=== PATIENT | male | born 2000 | race Caucasian/White ===

== ENCOUNTER 2025-04-27 12:38 | Emergency (ER) | payer OTHER, SELFPAY ==
--- NOTE | ~2025-04-27 | CT_ITS ---
EXAMINATION: CT abdomen pelvis wo con DATE: 04/27/2025 14:39 INDICATION: Abdominal pain. Tachycardia. Nausea, vomiting and diarrhea. TECHNIQUE: Computed tomography (CT) of the abdomen and pelvis was performed without intravenous contrast. Automated exposure control and iterative reconstruction technique were employed. The dose-length product was 1593.72 mGy-cm. COMPARISON: None FINDINGS: Lung bases are clear. Heart size is normal. No pericardial or pleural effusion. Liver, gallbladder, spleen, pancreas, bilateral adrenal glands and kidneys are normal. No urolithiasis. Bowels including appendix are normal. Bladder and prostate are normal. Moderate-sized fat-containing bilateral inguinal hernias. There is mild haziness to the small bowel mesentery in the left central abdomen along with a few mildly prominent but still normal-sized mesenteric lymph nodes the largest measuring up to 9 mm in maximal short axis diameter. No free intraperitoneal gas or fluid. No pathologically enlarged abdominal or pelvic lymphadenopathy. Mild thoracic and upper lumbar spondylosis. IMPRESSION: 1. Nonspecific mild haziness to the small bowel mesentery consistent with nonspecific inflammation or edema with a few associated mildly prominent but not frankly enlarged likely reactive mesenteric lymph nodes. No other acute intra- abdominal/pelvic process. 2. Moderate-sized bilateral fat-containing inguinal hernias. Reviewed, dictated and finalized at location A. IMPRESSION: 1. Nonspecific mild haziness to the small bowel mesentery consistent with nonsp ecific inflammation or edema with a few associated mildly prominent but not fra nkly enlarged likely reactive mesenteric lymph nodes. No other acute intra-abdo meliza/pelvic process. 2. Moderate-sized bilateral fat-containing inguinal hernias.
[2025-04-27 12:43] VITALS: BP 142/94; PULSE 125; RESP 16; TEMP 36.5; O2SAT 96
[2025-04-27 14:13] LABS: Add Urine Microscopic? YES; Appearance Urine Clear (Clear); Glucose Urine UA Negative (Negative); Leukocyte Esterase Ur Negative LEU/UL (Negative); Nitrate Urine Negative (Negative); Non Pathogenic Casts 0-2; Specific Grav Ur 1.033 (1.001-1.035)
[2025-04-27 14:20] LABS: Hematocrit 51.4 % (42.0-52.0); Hemoglobin 16.6 g/dL (14.0-18.0); Immature Granulocyte Percent A 0.3 % (0-0.5); Lymphocytes Absolute Auto 0.62 K/mm3 (0.9-3.2); Mean Corpuscular HGB Conc 32.3 g/dl (32-36); Mean Corpuscular Hemoglobin 29.2 pg (26-34); Mean Corpuscular Volume 90.3 fl (80-100); Nucleated Red Blood Cells Absolute Auto 0.000 K/mm3 (0.0-0.012); Nucleated Red Blood Cells Perc 0.0 % (0.0-0.2); Platelet Count Result 329 k/mm3 (150-375); Red Blood Count 5.69 M/mm3 (4.6-6.20); White Blood Count 6.2 K/mm3 (4.5-10.0)
[2025-04-27 14:23] LABS: Alanine Aminotransferase 44 U/L (6-50); Albumin Level 4.2 g/dL (3.5-5.1); Alkaline Phosphatase 64 U/L (38-126); Anion Gap 8 mmol/L (4-12); Aspartate Amino Transferase 46 U/L (17-59); Bilirubin,Total 0.3 mg/dL (0.2-1.3); Blood Urea Nitrogen 11 mg/dL (9-20); Calcium 9.0 mg/dL (8.4-10.2); Carbon Dioxide 25 mmol/L (22-30); Chloride 108 mmol/L (98-107); Estimated CRCL calculation 118 ml/min; Estimated Glomerular Filt Rate > 60; Glucose 95 mg/dL (65-110); Lipase 65 U/L (23-300); Potassium 4.3 mmol/L (3.4-5.0); Sodium 141 mmol/L (137-145); Total Protein 7.9 g/dL (6.3-8.2)
[2025-04-27] MEDS: BISMUTH SUBSALICYLATE 262 MG CHEWABLE TABLET 524 MG PO (14:56)
[2025-04-27] MEDS: ONDANSETRON INJ 4 MG/2 ML VIAL IV PUSH (14:56)
[2025-04-27] MEDS: LACTATED RINGERS 1,000 ML 999 ML IV CONT ×3 (14:57→16:30)
[2025-04-27 15:02] VITALS: BP 133/73; PULSE 110; RESP 18; O2SAT 96
[2025-04-27] MEDS: MAG HYDROX/AL HYDROX/SIMETH 30 ML UDC PO (16:29)
[2025-04-27 16:30] VITALS: BP 107/72; PULSE 99; RESP 18; O2SAT 97
--- NOTE | 2025-04-27 19:11 | ED_ITS ---
HPI - Abdominal Pain General Chief Complaint: Abdominal Pain Stated Complaint: diarrhea x 3 days Time Seen by Provider: 04/27/25 13:44 History of Present Illness HPI narrative: Patient with history of tachycardia presents here with nausea diarrhea, his had similar symptoms. Ongoing for last few days and has been having trouble keeping up. Some upper abdominal discomfort Related Data Home Medications ?Medication ?Instructions ?Recorded ?Confirmed ?Last Taken ?Type fluticasone propionate 50 1 spray intranasal DAILY 11/2906/11/23 Unknown History mcg/actuation nasal spray,suspension Allergies Allergy/AdvReac Type Severity Reaction Status Date / Time nitrofurantoin Allergy Unknown Hives Verified 04/27/25 12:46 gentamicin AdvReac Anaphylaxis Verified 04/27/25 12:46 mupirocin (From Bactroban) AdvReac Anaphylaxis Verified 04/27/25 12:46 Review of Systems 2 Review of Systems: All systems reviewed & are unremarkable except as noted in HPI and below PMFSH Past Medical History Medical History BMI 38.0-38.9,adult BMI 40.0-44.9, adult Morbid (severe) obesity due to excess calories Family History Family History Father Diabetes mellitus COPD (chronic obstructive pulmonary disease) CHF (congestive heart failure) Mother Rheumatoid arthritis Sibling No problems noted. 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 EYES: EOMI, conjunctiva normal ENT: Hearing grossly intact LUNGS: Nonlabored breathing. HEART: Tachycardic ABD: [Soft], [nontender to palpation] EXT: Normal range of motion SKIN: [No rashes or lesions.] NEURO: [Alert and oriented x 3. No gross focal sensory or strength deficits.] PSYCH: Normal affect Course Vital Signs Vital signs: Vital Signs Temperature 97.7 F 04/27/25 12:43 Pulse Rate 125 H 04/27/25 12:43 Respiratory Rate 16 04/27/25 12:43 Blood Pressure 142/94 H 04/27/25 12:43 Pulse Oximetry 96 04/27/25 12:43 Oxygen Delivery Room Air 04/27/25 12:43 Temperature 97.7 F 04/27/25 12:43 Pulse Rate 99 04/27/25 16:30 Respiratory Rate 18 04/27/25 16:30 Blood Pressure 107/72 04/27/25 16:30 Pulse Oximetry 97 04/27/25 16:30 Oxygen Delivery Room Air 04/27/25 16:30 MDM - Abdominal Pain MDM Narrative Medical decision making narrative: Electronic medical record was reviewed. Patient presented to the ED with complaint of abdominal cramping, nausea and diarrhea. Vitals tachycardia. Physical exam revealed tachycardic patient who is abdomen soft with only minimal tenderness to the upper abdomen. Based on the patient's history and physical exam, my differential includes but is not limited to [gastritis, gastroenteritis, cholecystitis, pancreatitis, appendicitis]. [IV access was established by nursing staff. Patient was given zofran, Pepto- Bismol, fluids]. CBC, BMP, lipase, LFTs, bilirubin and alk phos were obtained. Labs were pertinent for essentially normal labs. [Decision was made to obtain a CT-abdomen to evaluate for acute abdominal process. CT-abdomen per radiology interpretation is unremarkable for acute intra-abdominal surgical process, no signs of hydronephrosis, cholecystitis, appendicitis.] On reevaluation, the patient states that they are feeling much better. There were no witnessed episodes of vomiting in the emergency department. They are not complaining of any new abdominal pain. Repeat examination did not show any significant guarding or rebound. No new tenderness. At this time I do not feel there is any further emergent treatment to be provided. The patient was given strict return precautions, if they are to develop any worsening abdominal pain, vomiting, or blood in the vomit they are to return to the emergency department immediately. Patient verbally acknowledges understanding these directions. [The patient was informed of the above diagnostic test findings.] No further workup is necessary at this time. They will be discharged home [with prescriptions]. They were advised to follow-up with [their PCP] in 2 days. The patient feels that this is appropriate medical decision making and verbalizes an understanding of the discharge instructions. Lab Data 04/27/25 13:51 04/27/25 13:51 Labs: Lab Results 04/27/25 04/27/25 Range/Units 13:51 13:53 WBC 6.2 (4.5-10.0) K/mm3 RBC 5.69 (4.6-6.20) M/mm3 Hgb 16.6 (14.0-18.0) g/dL Hct 51.4 (42.0-52.0) % MCV 90.3 (80-100) fl MCH 29.2 (26-34) pg MCHC 32.3 (32-36) g/dl RDW 13.6 (11.5-14.5) % Plt Count 329 (150-375) k/mm3 MPV 10.6 H (7.4-10.4) fl Immature Gran % (Auto) 0.3 (0-0.5) % Neut % (Auto) 78.0 H (45.5-73.1) % Lymph % (Auto) 10.0 L (18.3-44.2) % [place] % (Auto) 7.7 (2.6-8.5) % Eos % (Auto) 3.5 (0-4.4) % Baso % (Auto) 0.5 (0.2-1.2) % Lymph # (Auto) 0.62 L (0.9-3.2) K/mm3 [place] # (Auto) 0.5 (0.1-0.6) K/mm3 Eos # (Auto) 0.2 (0-0.3) K/mm3 Baso # (Auto) 0.0 (0.0-0.1) K/mm3 Abs Immat Gran (auto) 0.02 (0.00-0.031) K/mm3 Absolute Neuts (auto) 4.9 (1.3-6.7) K/mm3 Absolute Nucleated RBC 0.000 (0.0-0.012) K/mm3 Nucleated RBC % 0.0 (0.0-0.2) % Sodium 141 (137-145) mmol/L Potassium 4.3 (3.4-5.0) mmol/L Chloride 108 H (98-107) mmol/L Carbon Dioxide 25 (22-30) mmol/L Anion Gap 8 (4-12) mmol/L BUN 11 (9-20) mg/dL Creatinine 1.11 (0.7-1.3) mg/dL Estim Creat Clear Calc 118 ml/min Estimated GFR > 60 (59 - ) Glucose 95 (65-110) mg/dL Calcium 9.0 (8.4-10.2) mg/dL Total Bilirubin 0.3 (0.2-1.3) mg/dL AST 46 (17-59) U/L ALT 44 (6-50) U/L Alkaline Phosphatase 64 (38-126) U/L Total Protein 7.9 (6.3-8.2) g/dL Albumin 4.2 (3.5-5.1) g/dL Lipase 65 (23-300) U/L Urine Color Dark yellow (Yellow) Urine Appearance Clear (Clear) Urine pH 5.0 (5.0-9.0) Ur Specific [place] 1.033 (1.001-1.035) Urine Protein Trace (Negative) mg/dL Urine Glucose (UA) Negative (Negative) mg/dL Urine Ketones Trace H (Negative) mg/dL Ur Blood (Man) Negative (Negative) Urine Nitrate Negative (Negative) Urine Bilirubin 1+ H (Negative) Urine Urobilinogen 1.0 (<2.0) mg/dL Leukocyte Esterase Rfl Negative (Negative) CHRISTAL/UL Urine RBC 0-2 (0-2) /hpf Urine WBC 0-5 (0-3) /hpf Ur Squamous Epith Cells None seen (Few) /hpf Urine Bacteria None seen /hpf Urine Casts 0-2 Imaging Data Radiologist's impression: ITS Impressions Abdomen/Pelvis CT 04/27/25 14:42 IMPRESSION: 1. Nonspecific mild haziness to the small bowel mesentery consistent with nonspecific inflammation or edema with a few associated mildly prominent but not frankly enlarged likely reactive mesenteric lymph nodes. No other acute intra- abdominal/pelvic process. 2. Moderate-sized bilateral fat-containing inguinal hernias. Discharge Plan Discharge Clinical Impression: Nausea, vomiting, and diarrhea Patient Disposition: Home Condition: Stable Instructions: Acute Nausea and Vomiting (ED), Acute Diarrhea (ED) Additional Instructions: Please take the meds as prescribed, make sure to keep hydrated, and follow up with your PCP; you can always return to the ER if your symptoms return or worsen. Patient Language: Martiniquais Prescriptions: New famotidine 20 mg tablet 20 mg PO DAILY Qty: 30 0RF dicyclomine 20 mg tablet 20 mg PO TID PRN (Reason: abdominal pain) Qty: 30 0RF alum-mag hydroxide-simeth [Maalox Advanced] 200-200-20 mg/5 mL suspension 10 ml PO QID PRN (Reason: dyspepsia) Qty: 200 0RF Rx Instructions: administer between meals and at bedtime ondansetron 4 mg tablet,disintegrating 4 mg PO Q8H PRN (Reason: nausea and vomiting) Qty: 10 0RF loperamide 2 mg capsule 2 mg PO Q6H PRN (Reason: loose stool) Qty: 10 0RF No Action fluticasone propionate 50 mcg/actuation spray,suspension 1 spray intranasal DAILY Rx Instructions: administer into each nostril albuterol sulfate [Ventolin HFA] 90 mcg/actuation HFA aerosol inhaler 1 puff INHALATION Q4H PRN (Reason: shortness of breath or wheezing) Qty: 8.5 1RF omeprazole 40 mg capsule,delayed release(DR/EC) 40 mg PO DAILY Qty: 30 2RF Alves[place] 80 mcg/actuation HFA aerosol inhaler 1 puff INHALATION BID Qty: 6.1 1RF montelukast [Singulair] 10 mg tablet 10 mg PO DAILY Qty: 90 0RF Follow-up/Referrals: Asaf Ramirez MD [Primary Care Provider, Family Practice] - 2 Days
== END 2025-04-27 17:19 | disposition home or self-care (01) ==
PROVIDERS: Physician Assistant; Emergency Provider Emergency Medicine; PCP Family Medicine
DX: R11.2 Nausea with vomiting, unspecified (principal); R19.7 Diarrhea, unspecified; E66.01 Morbid (severe) obesity due to excess calories; Z68.41 Body mass index [BMI] 40.0-44.9, adult
CPT/HCPCS: 36415; 74176; 80053; 81001; 83690; 85025; 96361; 96374; 99284; A9270; J2405; J7120

== ENCOUNTER 2025-07-03 23:58 | Observation (INO) | payer OTHER, SELFPAY ==
--- NOTE | ~2025-07-03 | CT_ITS ---
EXAMINATION: CT abdomen pelvis wo con DATE: 07/04/2025 00:33 INDICATION: Right upper quadrant abdominal pain. TECHNIQUE: Computed tomography (CT) of the abdomen and pelvis was performed without intravenous contrast. Automated exposure control and iterative reconstruction technique were employed. The dose-length product was 1503.79 mGy-cm. COMPARISON: CT abdomen and pelvis 04/27/2025 FINDINGS: The visualized portions of the lung bases demonstrate minimal atelectasis. No pleural effusion. The heart size is normal. No pericardial effusion. There is diffuse hepatic steatosis. The gallbladder is distended. There is fat stranding around the gallbladder. The spleen, pancreas, adrenal gla nds, and kidneys are normal. There is no urolithiasis. There are bilateral inguinal hernias containing fat. There are no dilated loops of bowel. The appendix is normal. There are no pathologically enlarged lymph nodes. There is no free intraperitoneal fluid. There is mild thoracic and lumbar spondylosis. IMPRESSION: 1. Acute cholecystitis. 2. Diffuse hepatic steatosis. Reviewed, dictated and finalized at location E.
[2025-07-04] VITALS (33 sets, daily range): BP systolic 105–182; BP diastolic 44–119; PULSE 88–120; RESP 5–31; TEMP 36–37.1; O2SAT 93–100; BMI 44.9
--- NOTE | 2025-07-04 00:04 | ED.ABDPAIN ---
HPI - Abdominal Pain General Chief Complaint: Abdominal Pain <HEIDI Pickard Filed: 07/04/25 01:31> Stated Complaint: RUQ abd/back pain <HEIDI Pickard Last Filed: 07/04/25 01:31> Time Seen by Provider: 07/04/25 00:02 <HEIDI Pickard Last Filed: 07/04/25 01:31> Source: patient <HEIDI Pickard Filed: 07/04/25 01:31> Mode of arrival: ambulatory <HEIDI Pickard Filed: 07/04/25 01:31> Limitations: no limitations <HEIDI Pickard Filed: 07/04/25 01:31> History of Present Illness HPI narrative: Patient is a 24 y/o male, with PMH of asthma, GERD, who presents to the ED with c/o right upper abdominal pain. Patient reports pain has been ongoing for the past 1 week, but became significantly worse tonight. Present in right upper abdomen, radiates across upper abdomen and around to his back. Pain worse with eating, particularly fatty foods. Ate [employer] this afternoon and developed worsening pain. States pain has been constant and persistent since then. Tried taking Tylenol, gas-x, bentyl without improvement. Reports nausea, denies vomiting. Denies diarrhea, constipation, fevers. Denies difficulty urinating. <HEIDI Pickard Last Filed: 07/04/25 01:31> Related Data Home Medications: Home Medications ?Medication ?Instructions ?Recorded ?Confirmed ?Last Taken ?Type fluticasone propionate 50 1 spray intranasal DAILY 06/11/23 06/11/23 Unknown History mcg/actuation nasal spray,suspension <HEIDI Pickard Last Filed: 07/04/25 01:31> Allergies/Adverse Reactions: Allergies Allergy/AdvReac Type Severity Reaction Status Date / Time iohexol (From contrast - CT, Allergy Intermediate Itching Verified 07/04/25 01:01 X-RAY) nitrofurantoin Allergy Unknown Hives Verified 07/04/25 00:04 gentamicin AdvReac Anaphylaxis Verified 07/04/25 00:04 mupirocin (From Bactroban) AdvReac Anaphylaxis Verified 07/04/25 00:04 <Sue Blandon PA-C - Last Filed: 07/04/25 01:31> Review of Systems Review of Systems: All systems reviewed & are unremarkable except as noted in HPI. <Sue Blandon PA-C - Last Filed: 07/04/25:31> All systems reviewed & are unremarkable except as noted in HPI and below <Sue Blandon PA-C - Last Filed: 07/04/25 01:31> PMFSH Past Medical History Medical History: Medical History BMI 38.0-38.9,adult BMI 40.0-44.9, adult Morbid (severe) obesity due to excess calories <Sue Blandon PA-C - Last Filed: 07/04/25 01:31> Family History Family History: Family History Father Diabetes mellitus COPD (chronic obstructive pulmonary disease) CHF (congestive heart failure) Mother Rheumatoid arthritis Sibling No problems noted. 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 HEAD: Normocephalic, atraumatic. RESPIRATORY: Airway patent, respirations nonlabored. Clear to auscultation bilaterally, no rales, rhonchi, wheezing. CARDIOVASCULAR: Regular rate and rhythm without murmurs, rubs, or gallops. ABDOMINAL: Soft, moderate TTP in RUQ, R mid abdomen, no rebound, +jurado's sign, nondistended. Normoactive BS. MUSCULOSKELETAL: Moves all extremities. No gross deformities. SKIN: Warm, dry, normal color. NEURO: A&O X3. Speech clear. Cranial nerves II-XII grossly intact. Steady gait. No ataxic movements. PSYCHIATRIC: Appropriate mood and affect. Normal interaction. <Sue Blandon PA-C - Last Filed: 07/04/25 01:31> Course FORTUNE TELLER/PA Physician Supervision This visit was performed by both a physician and an APC. I performed all aspects of the MDM as documented. <Alistair Kinsey MD - Last Filed: 07/04/25 02:32> Vital Signs Vital signs: Vital Signs Temperature 97.9 F 07/04/25 00:01 Pulse Rate 113 H 07/04/25 00:01 Respiratory Rate 20 07/04/25 00:01 Blood Pressure 175/102 H 07/04/25 00:01 Pulse Oximetry 99 07/04/25 00:01 Oxygen Delivery Room Air 07/04/25 00:01 Temperature 97.9 F 07/04/25 00:01 Pulse Rate 113 H 07/04/25 00:01 Respiratory Rate 20 07/04/25 00:01 Blood Pressure 175/102 H 07/04/25 00:01 Pulse Oximetry 99 07/04/25 00:01 Oxygen Delivery Room Air 07/04/25 00:01 <Sue Blandon PA-C - Last Filed: 07/04/25 01:31> Vital Signs Temperature 97.9 F 07/04/25 00:01 Pulse Rate 113 H 07/04/25 00:01 Respiratory Rate 20 07/04/25 00:01 Blood Pressure 175/102 H 07/04/25 00:01 Pulse Oximetry 99 07/04/25 00:01 Oxygen Delivery Room Air 07/04/25 00:01 Temperature 97.9 F 07/04/25 00:01 Pulse Rate 113 H 07/04/25 00:01 Respiratory Rate 20 07/04/25 00:01 Blood Pressure 175/102 H 07/04/25 00:01 Pulse Oximetry 99 07/04/25 00:01 Oxygen Delivery Room Air 07/04/25 00:01 <Alistair Kinsey MD - Last Filed: 07/04/25 02:32> MDM - Abdominal Pain MDM Narrative Medical decision making narrative: Patient presented to ED with 1 week history of right upper quadrant abdominal pain, worsening tonight. Worse with fatty foods. Patient mildly tachycardic upon arrival. He does have history of tachycardia. Afebrile here. Cbc with blood cell count of 12.4. CMP is unremarkable. Normal kidney function. Normal LFTs and lipase. CT abd/pelvis obtained. Personal review of images appear suspicious for acute cholecystitis. Started on antibiotics. Care signed out to Dr. Kinsey at shift change pending STAT RAD CT imaging and likely discussion with surgery. <Sue Blandon PA-C - Last Filed: 07/04/25 01:31> Patient presented to ED with 1 week history of right upper quadrant abdominal pain, worsening tonight. Worse with fatty foods. Patient mildly tachycardic upon arrival. He does have history of tachycardia. Afebrile here. Cbc with blood cell count of 12.4. CMP is unremarkable. Normal kidney function. Normal LFTs and lipase. CT abd/pelvis obtained. Personal review of images appear suspicious for acute cholecystitis. Started on antibiotics. Care signed out to Dr. Kinsey at shift change pending STAT RAD CT imaging and likely discussion with surgery. This visit was performed by both a physician and an APC. I performed all aspects of the MDM as documented. CT consistent with acute cholecystitis. I discussed the case with Dr. Aldridge, anticipates operative intervention in the morning, will see the patient as consult. Discussed case with hospitalist who will admit the patient. <Alistair Kinsey MD - Last Filed: 07/04/25 02:32> Differential Diagnosis Differential diagnosis: Likely calculus of kidney, constipation, pancreatitis, small bowel obstruction and other (acute cholecystitis) <Alistair Kinsey MD - Last Filed: 07/04/25 02:32> Medical Records Attestation: I reviewed the patient's medical records. <Sue Blandon PA-C - Last Filed: 07/04/25 01:31> Lab Data Attestation: I reviewed the patient's lab results. <Sue Blandon PA-C - Last Filed: 07/04/25 01:31> Result diagrams: 07/04/25 00:19 07/04/25 00:19 <Sue Blandon PA-C - Last Filed: 07/04/25 01:31> Labs: Lab Results 07/04/25 Range/Units 00:19 WBC 12.4 H (4.5-10.0) K/mm3 RBC 4.93 (4.6-6.20) M/mm3 Hgb 14.5 (14.0-18.0) g/dL Hct 43.6 (42.0-52.0) % MCV 88.4 (80-100) fl MCH 29.4 (26-34) pg MCHC 33.3 (32-36) g/dl RDW 13.0 (11.5-14.5) % Plt Count 362 (150-375) k/mm3 MPV 10.7 H (7.4-10.4) fl Immature Gran % (Auto) 0.5 (0-0.5) % Neut % (Auto) 69.5 (45.5-73.1) % Lymph % (Auto) 18.3 (18.3-44.2) % [place] % (Auto) 7.9 (2.6-8.5) % Eos % (Auto) 3.3 (0-4.4) % Baso % (Auto) 0.5 (0.2-1.2) % Lymph # (Auto) 2.27 (0.9-3.2) K/mm3 [place] # (Auto) 1.0 H (0.1-0.6) K/mm3 Eos # (Auto) 0.4 H (0-0.3) K/mm3 Baso # (Auto) 0.1 (0.0-0.1) K/mm3 Abs Immat Gran (auto) 0.06 H (0.00-0.031) K/mm3 Absolute Neuts (auto) 8.7 H (1.3-6.7) K/mm3 Absolute Nucleated RBC 0.000 (0.0-0.012) K/mm3 Nucleated RBC % 0.0 (0.0-0.2) % Sodium 139 (137-145) mmol/L Potassium 3.8 (3.4-5.0) mmol/L Chloride 101 (98-107) mmol/L Carbon Dioxide 29 (22-30) mmol/L Anion Gap 9 (4-12) mmol/L BUN 12 (9-20) mg/dL Creatinine 0.99 (0.7-1.3) mg/dL Estim Creat Clear Calc 133 ml/min Estimated GFR > 60 (59 - ) Glucose 107 (65-110) mg/dL Calcium 9.7 (8.4-10.2) mg/dL Total Bilirubin 0.5 (0.2-1.3) mg/dL AST 44 (17-59) U/L ALT 36 (6-50) U/L Alkaline Phosphatase 74 (38-126) U/L Total Protein 8.3 H (6.3-8.2) g/dL Albumin 4.3 (3.5-5.1) g/dL Lipase 82 (23-300) U/L <Sue Blandon PA-C - Last Filed: 07/04/25 01:31> Lab Results 07/04/25 Range/Units 00:19 WBC 12.4 H (4.5-10.0) K/mm3 RBC 4.93 (4.6-6.20) M/mm3 Hgb 14.5 (14.0-18.0) g/dL Hct 43.6 (42.0-52.0) % MCV 88.4 (80-100) fl MCH 29.4 (26-34) pg MCHC 33.3 (32-36) g/dl RDW 13.0 (11.5-14.5) % Plt Count 362 (150-375) k/mm3 MPV 10.7 H (7.4-10.4) fl Immature Gran % (Auto) 0.5 (0-0.5) % Neut % (Auto) 69.5 (45.5-73.1) % Lymph % (Auto) 18.3 (18.3-44.2) % [place] % (Auto) 7.9 (2.6-8.5) % Eos % (Auto) 3.3 (0-4.4) % Baso % (Auto) 0.5 (0.2-1.2) % Lymph # (Auto) 2.27 (0.9-3.2) K/mm3 [place] # (Auto) 1.0 H (0.1-0.6) K/mm3 Eos # (Auto) 0.4 H (0-0.3) K/mm3 Baso # (Auto) 0.1 (0.0-0.1) K/mm3 Abs Immat Gran (auto) 0.06 H (0.00-0.031) K/mm3 Absolute Neuts (auto) 8.7 H (1.3-6.7) K/mm3 Absolute Nucleated RBC 0.000 (0.0-0.012) K/mm3 Nucleated RBC % 0.0 (0.0-0.2) % Sodium 139 (137-145) mmol/L Potassium 3.8 (3.4-5.0) mmol/L Chloride 101 (98-107) mmol/L Carbon Dioxide 29 (22-30) mmol/L Anion Gap 9 (4-12) mmol/L BUN 12 (9-20) mg/dL Creatinine 0.99 (0.7-1.3) mg/dL Estim Creat Clear Calc 133 ml/min Estimated GFR > 60 (59 - ) Glucose 107 (65-110) mg/dL Calcium 9.7 (8.4-10.2) mg/dL Total Bilirubin 0.5 (0.2-1.3) mg/dL AST 44 (17-59) U/L ALT 36 (6-50) U/L Alkaline Phosphatase 74 (38-126) U/L Total Protein 8.3 H (6.3-8.2) g/dL Albumin 4.3 (3.5-5.1) g/dL Lipase 82 (23-300) U/L <Alistair Kinsey MD - Last Filed: 07/04/25 02:32> Imaging Data Attestation: I personally reviewed and interpreted this imaging study as follows: <Sue Blandon PA-C - Last Filed: 07/04/25 01:31> My impression: CT abdomen/pelvis: gall bladder distention with inflammatory changes, likely acute cholecystitis <Alistair Kinsey MD - Last Filed: 07/04/25 02:32> Radiologist's impression: CT abdomen/pelvis: Gallbladder is distended. No calcified gallstones are seen. There are surrounding inflammatory changes. This may represent acute cholecystitis. No biliary ductal dilatation is noted. <Alistair Kinsey MD - Last Filed: 07/04/25 02:32> Discharge Plan Discharge Clinical Impression: Acute cholecystitis <HEIDI Pickard Last Filed: 07/04/25 01:31> Patient Disposition: Still a Patient <HEIDI Pickard Last Filed: 07/04/25 01:31> Condition: Stable <HEIDI Pickard Last Filed: 07/04/25 01:31> Patient Language: Portuguese <HEIDI Pickard Last Filed: 07/04/25 01:31> Prescriptions: No Action fluticasone propionate 50 mcg/actuation spray,suspension 1 spray intranasal DAILY Rx Instructions: administer into each nostril famotidine 20 mg tablet 20 mg PO DAILY Qty: 30 0RF dicyclomine 20 mg tablet 20 mg PO TID PRN (Reason: abdominal pain) Qty: 30 0RF alum-mag hydroxide-simeth [Maalox Advanced] 200-200-20 mg/5 mL suspension 10 ml PO QID PRN (Reason: dyspepsia) Qty: 200 0RF Rx Instructions: administer between meals and at bedtime ondansetron 4 mg tablet,disintegrating 4 mg PO Q8H PRN (Reason: nausea and vomiting) Qty: 10 0RF loperamide 2 mg capsule 2 mg PO Q6H PRN (Reason: loose stool) Qty: 10 0RF albuterol sulfate [Ventolin HFA] 90 mcg/actuation HFA aerosol inhaler 1 puff INHALATION Q4H PRN (Reason: shortness of breath or wheezing) Qty: 8.5 1RF omeprazole 40 mg capsule,delayed release(DR/EC) 40 mg PO DAILY Qty: 30 2RF [place] 80 mcg/actuation HFA aerosol inhaler 1 puff INHALATION BID Qty: 6.1 1RF montelukast [Singulair] 10 mg tablet 10 mg PO DAILY Qty: 90 0RF <HEIDI Pickard Last Filed: 07/04/25 01:31> Follow-up/Referrals: Asaf Ramirez MD [Primary Care Provider, Family Practice] <Sue Blandon PA-C - Last Filed: 07/04/25 01:31>
[2025-07-04 00:25] LABS: Hematocrit 43.6 % (42.0-52.0); Hemoglobin 14.5 g/dL (14.0-18.0); Immature Granulocyte Percent A 0.5 % (0-0.5); Lymphocytes Absolute Auto 2.27 K/mm3 (0.9-3.2); Mean Corpuscular HGB Conc 33.3 g/dl (32-36); Mean Corpuscular Hemoglobin 29.4 pg (26-34); Mean Corpuscular Volume 88.4 fl (80-100); Nucleated Red Blood Cells Absolute Auto 0.000 K/mm3 (0.0-0.012); Nucleated Red Blood Cells Perc 0.0 % (0.0-0.2); Platelet Count Result 362 k/mm3 (150-375); Red Blood Count 4.93 M/mm3 (4.6-6.20); White Blood Count 12.4 K/mm3 (4.5-10.0)
[2025-07-04] MEDS: MORPHINE SULFATE (*CRX) 4 MG/ML INJ IV PUSH (00:33)
[2025-07-04] MEDS: ONDANSETRON INJ 4 MG/2 ML VIAL IV PUSH (00:33)
[2025-07-04] MEDS: SODIUM CHLORIDE 0.9% IV 1,000 ML 999 ML IV CONT ×2 (00:34→02:29)
[2025-07-04 00:42] LABS: Alanine Aminotransferase 36 U/L (6-50); Albumin Level 4.3 g/dL (3.5-5.1); Alkaline Phosphatase 74 U/L (38-126); Anion Gap 9 mmol/L (4-12); Aspartate Amino Transferase 44 U/L (17-59); Bilirubin,Total 0.5 mg/dL (0.2-1.3); Blood Urea Nitrogen 12 mg/dL (9-20); Calcium 9.7 mg/dL (8.4-10.2); Carbon Dioxide 29 mmol/L (22-30); Chloride 101 mmol/L (98-107); Estimated CRCL calculation 133 ml/min; Estimated Glomerular Filt Rate > 60; Glucose 107 mg/dL (65-110); Lipase 82 U/L (23-300); Potassium 3.8 mmol/L (3.4-5.0); Sodium 139 mmol/L (137-145); Total Protein 8.3 g/dL (6.3-8.2)
[2025-07-04] MEDS: HYDROmorphone HCL INJ (*CRX) 1 MG/ML SYR 0.5 MG IV PUSH ×3 (01:07→03:03)
[2025-07-04] MEDS: PIPERACILLIN/TAZOBACTAM SOD 4.5 GM in SODIUM CHLORIDE 0.9% IV 100 ML 200 ML IVPB (01:55)
--- NOTE | 2025-07-04 03:42 | PC.NURSE ---
Patient admitted to room 300 at 0310. Patient having severe abdominal pain and is aware surgery is consulted. Patients mother called for an update. Patient falling asleep while doing the admission questions.
--- NOTE | 2025-07-04 03:45 | PM.IMHP ---
H&P: HPI History of Present Illness Date/Time: 07/04/25 03:45 Chief Complaint: Right upper abdominal pain Narrative: 24-year-old male with a past medical history of morbid obesity, diabetes mellitus, asthma and GERD who presented to the ER via private vehicle due to right upper quadrant pain. Patient has been having pain for about a week. He reported that the pain started after [facility] last week. Pain is in the right upper quadrant radiating to the back and is worse with eating fatty foods. He went to [facility] shortly after onset of symptoms and had a CT of the chest abdomen pelvis which was negative for acute process. He was told that he had gas and a go home and take some Gas-X. He tried taking Tylenol, Gas-X and Bentyl without improvement. He reports that the pain is been constant. He reports that the pain is 10/10 intensity and a cannot stand it. He states that the pain is sharp and stabbing and radiates through to his back He has been having some nausea but no vomiting. Today he stopped at [facility] and 3 hours later his pain intensified again any could not stand the symptoms anymore so he came into the ER. In the ER the patient had a CT performed which demonstrated the gallbladder dilatation and inflammation. No evidence of gallstones. Patient was afebrile but did have some mild tachycardia and leukocytosis with a white count of 12.4. He received Zofran and morphine morphine did not relieve his pain he subsequently received 2 doses of Dilaudid with some improvement. On arrival to the medical floor the patient was somnolent falling asleep during nursing is intake interview. But he was still waking up in asking for more pain medication. The patient reports that he is diagnosed with ?pre diabetes? back around April. He was started on metformin at that time. Despite eliminating sugar and reportedly trying to eat healthier he has continued to gain weight and is gained about 25 lb. Review of Systems Review of Systems: 12 systems were reviewed with pertinent positives and negatives per HPI. Except as documented in the HPI, all other systems were reviewed and are negative. [facility] Past Medical History Medical History (Updated 07/04/25 @ 04:04 by Diane Gonzales DO) Anxiety Nicotine dependence Intermittent asthma BMI 40.0-44.9, adult Morbid (severe) obesity due to excess calories Surgical History Surgical History (Updated 07/04/25 @ 05:20 by Diane Gonzales DO) Status post myringotomy with tube placement of both ears X5 with his last set falling out at age 16 Family History Family History Father Diabetes mellitus COPD (chronic obstructive pulmonary disease) CHF (congestive heart failure) Mother Rheumatoid arthritis Sibling No problems noted. Other Hypertension Social History Social History (Updated 07/04/25 @ 05:22 by Diane Gonzales DO) Social History: He reports that he and his have dated since they were in their early teens. They have been for the last year. They have 3 daughters ages 4, 8 and 9 years old. He works at the [employer]. He has smoked or vape since he was 20 years old. He vapes quite heavily. He drinks alcohol about once a month. He used to use marijuana on a somewhat frequent basis but reportedly has not used in 3 years. Code status: Full code Surrogate decision maker: Ermelinda Meyermaker () Smoking status: Current every day smoker Tobacco type: e-cigarettes/vaping Second hand tobacco smoke exposure: Yes Alcohol intake: current Drinks per week: 1 Substance use: former Substance use type: marijuana Last use: 3 years ago Lack of Transportation: No Lack of Food: Never True Current Housing: I Have Housing Concerned About Future Housing: No Difficulty Paying Gas/Electric Bills: No Difficulty Paying for Meds: No Currently Unemployed: No Education: High School Diploma/GED Difficulty w/ Childcare or Family Care: No Living arrangements: with family Occupation/Education: occupation 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 Gender identity (if verbalized by the patient): Male Spiritual care concerns: No Meds Home Medications and Allergies Home Medications ?Medication ?Instructions ?Recorded ?Confirmed ?Type albuterol sulfate 90 mcg/actuation 1 puff inhalation Q4H PRN 05/30/23 07/04/25 Rx aerosol inhaler (Ventolin HFA) shortness of breath or wheezing #8.5 grams fluticasone propionate 50 1 spray intranasal DAILY 06/11/23 07/04/25 History mcg/actuation nasal spray,suspension omeprazole 40 mg capsule,delayed 40 mg PO DAILY #30 caps 11/11/23 07/04/25 Rx release montelukast 10 mg tablet 10 mg PO DAILY #90 tabs 06/20/24 07/04/25 Rx (Singulair) aluminum-mag hydroxide-simethicone 10 ml PO QID PRN dyspepsia #200 mL 04/27/25 07/04/25 Rx 200 mg-200 mg-20 mg/5 mL oral susp (Maalox Advanced) ipratropium 0.5 mg-albuterol 3 mg 3 ml inhalation QID 07/04/25 07/04/25 History (2.5 mg base)/3 mL nebulization soln metformin 500 mg tablet,extended 500 mg PO DAILY diabetes 07/04/25 07/04/25 History release 24 hr mometasone 220 mcg/actuation(60 1 inh inhalation Q12H 07/04/25 07/04/25 History doses) breath activated powder inhaler (Asmanex Twisthaler) Allergies Allergy/AdvReac Type Severity Reaction Status Date / Time iohexol (From contrast - CT, Allergy Intermediate Itching Verified 07/04/25 03:28 X-RAY) nitrofurantoin Allergy Unknown Hives Verified 07/04/25 03:28 gentamicin AdvReac Anaphylaxis Verified 07/04/25 03:28 mupirocin (From Bactroban) AdvReac Anaphylaxis Verified 07/04/25 03:28 Vital Signs Vital Signs - 24 hr 07/04/25 00:01 07/04/25 00:08 07/04/25 00:09 Temperature 97.9 F Pulse Rate 113 H 100 107 H Respiratory Rate 20 14 21 H Blood Pressure 175/102 H 142/91 H Pulse Oximetry 99 99 98 Oxygen Delivery Room Air 07/04/25 00:43 07/04/25 00:45 07/04/25 00:46 Temperature Pulse Rate 96 94 102 H Respiratory Rate 9 L 11 L 5 L Blood Pressure 161/94 H Pulse Oximetry 96 100 99 Oxygen Delivery 07/04/25 01:00 07/04/25 01:01 07/04/25 01:16 Temperature Pulse Rate 88 108 H 95 Respiratory Rate 10 L 31 H 8 L Blood Pressure 169/99 H 177/99 H Pulse Oximetry 98 98 98 Oxygen Delivery 07/04/25 01:17 07/04/25 01:48 07/04/25 02:10 Temperature Pulse Rate 95 106 H 95 Respiratory Rate 15 16 22 H Blood Pressure Pulse Oximetry 99 99 97 Oxygen Delivery 07/04/25 02:15 07/04/25 02:16 07/04/25 02:30 Temperature Pulse Rate 97 93 93 Respiratory Rate 14 12 10 L Blood Pressure 175/106 H Pulse Oximetry 95 97 98 Oxygen Delivery 07/04/25 02:31 07/04/25 03:18 Temperature 98.2 F Pulse Rate 96 93 Respiratory Rate 13 12 Blood Pressure 174/119 H 182/110 H Pulse Oximetry 97 96 Oxygen Delivery Exam Narrative: Weight 134 kg BMI 44.9 Const: Other: Restless sitting up in bed difficult to redirect, morbidly obese, appears stated age HENMT: Other: Mucous membranes are moist, markedly crowded posterior oropharynx, no oral pharyngeal erythema Eyes: Other: No scleral icterus, no conjunctival pallor, pupils are equal and reactive, patient is wearing corrective lenses that her markedly scratched up Neck: Other: Large neck circumference, no lymphadenopathy Resp: Other: Clear to auscultation bilaterally, no increased work of breathing Cardio: Other: Regular rate, regular rhythm, 2+ bilateral radial pedal pulses GI: Other: Distended and obese, positive bowel sounds, diffusely tender, Skin: Other: Numerous tattoos scattered on extremities, back and chest, no jaundice, no pallor Neuro: Other: Alert oriented, speech is clear, no facial asymmetry, no localizing neurologic deficits Extrem: Other: No clubbing, cyanosis or edema, moves all extremities equally Psych: Other: Anxious, irritable, histrionic H&P: Results Labs Labs: Laboratory Tests 07/04/25 00:19 07/04/25 00:19 07/04/25 00:19 WBC 12.4 H RBC 4.93 Hgb 14.5 Hct 43.6 MCV 88.4 MCH 29.4 MCHC 33.3 RDW 13.0 Plt Count 362 MPV 10.7 H Immature Gran % (Auto) 0.5 Neut % (Auto) 69.5 Lymph % (Auto) 18.3 Mcpherson % (Auto) 7.9 Eos % (Auto) 3.3 Baso % (Auto) 0.5 Lymph # (Auto) 2.27 Mcpherson # (Auto) 1.0 H Eos # (Auto) 0.4 H Baso # (Auto) 0.1 Abs Immat Gran (auto) 0.06 H Absolute Neuts (auto) 8.7 H Absolute Nucleated RBC 0.000 Nucleated RBC % 0.0 Sodium 139 Potassium 3.8 Chloride 101 Carbon Dioxide 29 Anion Gap 9 BUN 12 Creatinine 0.99 Estim Creat Clear Calc 133 Estimated GFR > 60 Glucose 107 Calcium 9.7 Total Bilirubin 0.5 AST 44 ALT 36 Alkaline Phosphatase 74 Total Protein 8.3 H Albumin 4.[address] of the abdomen pelvis without contrast demonstrated findings consistent with acute cholecystitis without evidence of stones per stat read interpretation. Assessment and Plan Assessment and plan (1) Acute cholecystitis: Code(s): K81.0 - Acute cholecystitis Status: Acute (2) Gastroesophageal reflux disease without esophagitis: Code(s): K21.9 - Gastro-esophageal reflux disease without esophagitis Status: Acute (3) Elevated blood pressure reading without diagnosis of hypertension: Code(s): R03.0 - Elevated blood-pressure reading, without diagnosis of hypertension Status: Acute (4) Intermittent asthma: Qualifiers: Asthma complication type: with status asthmaticus Asthma severity: mild Qualified Code(s): J45.22 - Mild intermittent asthma with status asthmaticus Code(s): J45.20 - Mild intermittent asthma, uncomplicated Status: Chronic (5) Nicotine dependence: Qualifiers: Nicotine product type: other Substance use status: uncomplicated Qualified Code(s): F17.290 - Nicotine dependence, other tobacco product, uncomplicated Code(s): F17.200 - Nicotine dependence, unspecified, uncomplicated Status: Acute (6) Suspected sleep apnea: Code(s): R29.818 - Other symptoms and signs involving the nervous system Status: Acute Plan Patient presents with physical exam and imaging consistent with acute cholecystitis. Patient did have some leukocytosis and mild tachycardia meeting SIRS criteria but tachycardia resolved after 2 L of IV fluid administration. Patient was started on empiric antibiotic therapy with Zosyn. No evidence of choledocholithiasis or biliary obstruction. General surgery has been consulted. Patient is NPO for he possible surgical intervention. Will continue maintenance IV fluid hydration. Will repeat CBC in a.m.. Patient did have a mildly elevated serum protein suggesting some mild hemoconcentration/dehydration. Will continue maintenance IV fluids. Patient does not have a known history of hypertension but has had elevated blood pressures since arrival to the hospital. Possibly due to acute pain but cannot rule out underlying essential hypertension. Will provide pain medications and will monitor blood pressures. If blood pressures remain elevated we may need to start antihypertensive medications. Patient does have history of intermittent has been but is not having any respiratory symptoms at this time. Will resume home Singulair want able to take p.o. will continue p.r.n. inhalers. Will substitute the patient's oral PPI with IV Protonix while NPO. Patient does have a longstanding history of nicotine abuse. Will offer nicotine patch if needed. A patient does have morbid obesity and has an elevated stop Bang score. The patient himself is suspicious that he has obstructive sleep apnea but has not had a sleep study. He would benefit from outpatient polysomnogram once acute medical conditions at been handled. He would benefit from diet lifestyle modification. The patient reports his history of prediabetes. He is currently euglycemic. The metformin is on hold while hospitalized. He MEDICAL DECISION MAKING NARRATIVE -Spoke with the ED provider in detail regarding patient's evaluation, workup and management -Patient seen and examined at bedside -Collaborated with patient's nurse at the bedside in detail and addressed all concerns -Labs, electrolytes, radiology, investigations and test results personally reviewed and interpreted unless otherwise specified -ED/Consult/Nursing/Ancilliary notes on the chart reviewed and appreciated -Spoke with patient at bedside and diagnosis and plan of care was discussed. All questions answered. Quality VTE Prophylaxis VTE prophylaxis: pharmacologic ordered (Will start Lovenox 40 mg q.12 hours after surgery) Hospitalist [facility] Advance Care Plan I have confirmed that the patient's Advanced Care Plan is present, code status is documented, or surrogate decision maker is listed in patient medical record.: Yes Medication Reconciliation I have utilized all available resources to obtain, update and review the patients current medications (includes all prescriptions, OTC, herbals, cannabis, and nutritional supplements).: Yes
[2025-07-04] MEDS: SODIUM CHLORIDE 0.9% IV 1,000 ML 100 ML IV CONT (04:44)
[2025-07-04] MEDS: HYDROmorphone HCL INJ (*CRX) 1 MG/ML SYR IV PUSH ×2 (04:51→08:01)
[2025-07-04] MEDS: PIPERACILLIN/TAZOBACTAM SOD 3.375 GM in SODIUM CHLORIDE 0.9% IV 50 ML 100 ML IVPB ×3 (06:16→17:03)
[2025-07-04 07:40] LABS: Add Urine Microscopic? NO; Appearance Urine Clear (Clear); Glucose Urine UA Negative (Negative); Leukocyte Esterase Ur Negative LEU/UL (Negative); Nitrate Urine Negative (Negative); Specific Grav Ur 1.024 (1.001-1.035)
[2025-07-04] MEDS: PANTOPRAZOLE SODIUM IV 40 MG VIAL IV PUSH (08:01)
[2025-07-04] MEDS: FLUTICASONE PROPIONATE 0.05% NA SPR 16 GM BTL (*BKC) 1 SPRAY NASAL (08:02)
--- NOTE | 2025-07-04 10:10 | PC.NURSE ---
To OR per hospital bed.
--- NOTE | 2025-07-04 10:14 | P.CONGS_ITS ---
Assessment and Plan Assessment and plan (1) Acute cholecystitis: Code(s): K81.0 - Acute cholecystitis <Edilberto BaumanYoandy Ruiz DO - Last Filed: 07/04/25 10:25> Status: Acute <Edilberto Vera Joseph, DO - Last Filed: 07/04/25 10:25> Assessment and Plan: I have reviewed the CT abdomen and pelvis, as well as the patient is labs. I discussed with the patient that his clinical history as well as imaging and labs supports the diagnosis of acute cholecystitis. I discussed with the patient that the treatment for acute cholecystitis is a cholecystectomy. I discussed the risks, benefits, and alternatives with the patient. He expressed understanding, all questions were answered, and he wishes to proceed with laparoscopic cholecystectomy. - Admitted to hospitalist - NPO - IV ABX - OR today for laparoscopic cholecystectomy - remainder of cares per primary team - surgery will follow A&P discussed with Dr. Aldridge <Edilberto Ruiz, DO - Last Filed: 07/04/25 10:25> Assessment and Plan: Patient having severe abdominal pain in the setting of findings consistent with acute cholecystitis. He is also tachycardic and pain has been very difficult to control. I have recommended urgent laparoscopic cholecystectomy, possible open. I discussed the procedure, risks, benefits, and alternatives. Questions were answered. <Holland Aldridge, DO - Last Filed: 07/04/25 12:04> History of Present Illness Consult details Consult date: 07/04/25 <Edilberto Ruiz DO - Last Filed: 07/04/25 10:25> 07/04/25 <Holland Aldridge, DO - Last Filed: 07/04/25 12:04> Reason for consult: other (cholecystitis) <Holland Aldridge DO - Last Filed: 07/04/25 12:04> Requesting physician: Alistair Kinsey MD <Holland Aldridge, DO - Last Filed: 07/04/25 12:04> Narrative: Patient is a 24-year-old male with past medical history of T2DM, GERD, asthma, and obesity who presented to the hospital complaining of right upper quadrant abdominal pain lasting 1 week. The patient reports that he ate [employer] a week ago and had a sudden onset of pain in his right upper quadrant approximately 2-3 hours afterwards. He states that this pain has persisted for the past week and has not gone away, he does state that it gets worse with eating. He reported eating [employer] last night with increasing pain which prompted him to present to the emergency department. He was seen a week ago at [facility] for his pain and was discharged home. He endorses associated nausea. Denies vomiting, fevers, or chills. He has a leukocytosis with a WBC of 12.4. His LFTs and T bili are normal. The remainder of labs are grossly WNL. On exam, his abdomen is tender to palpation in the right upper quadrant, positive Ortega sign. He is tachycardic to the low 100s and hypertensive. He had a CT abdomen and pelvis that showed a inflammation surrounding the gallbladder as well as a distended gallbladder. Clinical findings are consistent with acute cholecystitis. The patient has never had intra-abdominal surgery. <Edilberto Ruiz, DO - Last Filed: 07/04/25 10:25> Review of Systems 2 Review of Systems: 12 point ROS negative except HPI <Edilberto Ruiz, DO - Last Filed: 07/04/25 10:25> All systems reviewed & are unremarkable except as noted in HPI and below < Holland Aldridge, DO - Last Filed: 07/04/25 12:04> Eyes: Eyes: Denies change in vision <Holland Aldridge DO - Last Filed: 07/04/25 12:04> ENT: Denies hearing loss, Denies neck pain and Denies sore throat <Holland Aldridge, DO - Last Filed: 07/04/25 12:04> Cardiovascular: Cardiovascular: Denies chest pain and Denies dyspnea < Holland Aldridge, DO - Last Filed: 07/04/25 12:04> Respiratory: Respiratory: Denies cough, Denies dyspnea and Denies wheezing <Holland Aldridge DO - Last Filed: 07/04/25 12:04> Genitourinary: Genitourinary: Denies hematuria and Denies dysuria <Holland Aldridge DO - Last Filed: 07/04/25 12:04> Musculoskeletal: Musculoskeletal: Denies arthralgias, Denies joint swelling and Denies neck pain <Holland Aldridge, DO - Last Filed: 07/04/25 12:04> Allergic/Immunologic: Allergic/Immunologic: Denies wheezing <Holland Aldridge, DO - Last Filed: 07/04/25 12:04> [facility] Past Medical History Medical History: Medical History Anxiety Nicotine dependence Intermittent asthma BMI 40.0-44.9, adult Morbid (severe) obesity due to excess calories <Edilberto BaumanYoandy Ruiz, DO - Last Filed: 07/04/25 10:25> Surgical History Surgical History: Surgical History Status post myringotomy with tube placement of both ears X5 with his last set falling out at age 16 <Edilberto Ruiz, DO - Last Filed: 07/04/25 10:25> Family History Family History: Family History Father Diabetes mellitus COPD (chronic obstructive pulmonary disease) CHF (congestive heart failure) Mother Rheumatoid arthritis Sibling No problems noted. Other Hypertension <Edilberto Ruiz, DO - Last Filed: 07/04/25 10:25> Social History Social History: Social History Social History: He reports that he and his have dated since they were in their early teens. They have been for the last year. They have 3 daughters ages 4, 8 and 9 years old. He works at the [employer]. He has smoked or vape since he was 20 years old. He vapes quite heavily. He drinks alcohol about once a month. He used to use marijuana on a somewhat frequent basis but reportedly has not used in 3 years. Code status: Full code Surrogate decision maker: Ermelinda Moneymaker () Smoking status: Current every day smoker Tobacco type: e-cigarettes/vaping Second hand tobacco smoke exposure: Yes Alcohol intake: current Drinks per week: 1 Substance use: former Substance use type: marijuana Last use: 3 years ago Lack of Transportation: No Lack of Food: Never True Current Housing: I Have Housing Concerned About Future Housing: No Difficulty Paying Gas/Electric Bills: No Difficulty Paying for Meds: No Currently Unemployed: No Education: High School Diploma/GED Difficulty w/ Childcare or Family Care: No Living arrangements: with family Occupation/Education: occupation 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 Gender identity (if verbalized by the patient): Male Spiritual care concerns: No <Edilberto Ruiz DO - Last Filed: 07/04/25 10:25> Meds Home Medications and Allergies Home medications: Home Medications ?Medication ?Instructions ?Recorded ?Confirmed ?Type albuterol sulfate 90 mcg/actuation 1 puff inhalation Q 4H PRN 05/30/23 07/04/25 Rx aerosol inhaler (Ventolin HFA) shortness of breath or wheezing #8.5 grams fluticasone propionate 50 1 spray intranasal DAILY 11/2907/04/25 History mcg/actuation nasal spray,suspension omeprazole 40 mg capsule,delayed 40 mg PO DAILY #30 ca ps 11/11/23 07/04/25 Rx release montelukast 10 mg tablet 10 mg PO DAILY #90 tabs 06/0907/04/25 Rx (Singulair) aluminum-mag hydroxide-simethicone 10 ml PO QID PRN dy spepsia #200 mL 04/27/25 07/04/25 Rx 200 mg-200 mg-20 mg/5 mL oral susp (Maalox Advanced) ipratropium 0.5 mg-albuterol 3 mg 3 ml inhalation QID 07/04/25 07/04/25 History (2.5 mg base)/3 mL nebulization soln metformin 500 mg tablet,extended 500 mg PO DAILY diabe tony 07/04/25 07/04/25 History release 24 hr mometasone 220 mcg/actuation(60 1 inh inhalation Q12H 07/04/25 07/04/25 History doses) breath activated powder inhaler (Asmanex Twisthaler) <Edilberto Ruiz DO - Last Filed: 07/04/25 10:25> Allergies/Adverse reactions: Allergies Allergy/AdvReac Type Severity Reaction Status Date / Time iohexol (From contrast - CT, Allergy Intermediate Itching Verified 07/04/25 03:28 X-RAY) nitrofurantoin Allergy Unknown Hives Verified 07/04/25 03:28 gentamicin AdvReac Anaphylaxis Verified 07/04/25 03:28 mupirocin (From Bactroban) AdvReac Anaphylaxis Verified 07/04/25 03:28 <Edilberto Ruiz, DO - Last Filed: 07/04/25 10:25> Vital Signs Vital Signs - 24 hr 07/04/25 00:01 07/04/25 00:08 07/04/25 00:09 Temperature 97.9 F Pulse Rate 113 H 100 107 H Respiratory Rate 20 14 21 H Blood Pressure 175/102 H 142/91 H Pulse Oximetry 99 99 98 Oxygen Delivery Room Air 07/04/25 00:43 07/04/25 00:45 07/04/25 00:46 Temperature Pulse Rate 96 94 102 H Respiratory Rate 9 L 11 L 5 L Blood Pressure 161/94 H Pulse Oximetry 96 100 99 Oxygen Delivery 07/04/25 01:00 07/04/25 01:01 07/04/25 01:16 Temperature Pulse Rate 88 108 H 95 Respiratory Rate 10 L 31 H 8 L Blood Pressure 169/99 H 177/99 H Pulse Oximetry 98 98 98 Oxygen Delivery 07/04/25 01:17 07/04/25 01:48 07/04/25 02:10 Temperature Pulse Rate 95 106 H 95 Respiratory Rate 15 16 22 H Blood Pressure Pulse Oximetry 99 99 97 Oxygen Delivery 07/04/25 02:15 07/04/25 02:16 07/04/25 02:30 Temperature Pulse Rate 97 93 93 Respiratory Rate 14 12 10 L Blood Pressure 175/106 H Pulse Oximetry 95 97 98 Oxygen Delivery 07/04/25 02:31 07/04/25 03:18 07/04/25 08:00 Temperature 98.2 F Pulse Rate 96 93 Respiratory Rate 13 12 Blood Pressure 174/119 H 182/110 H Pulse Oximetry 97 96 Oxygen Delivery Room Air 07/04/25 08:00 Temperature 97.0 F L Pulse Rate 104 H Respiratory Rate 16 Blood Pressure 177/103 H Pulse Oximetry 97 Oxygen Delivery <Edilberto Ruiz DO - Last Filed: 07/04/25 10:25> Exam 2 Narrative: general: Awake, alert, no acute distress HEENT: NC/AT, mucous membranes pink and moist neck: No masses or swelling, no JVD heart: Tachycardic to low 100s, hypertensive, otherwise HDS lungs: Symmetric expansion, no IWOB, on room air abdomen: Soft, TTP in RUQ, positive Ortega sign, nondistended, non peritoneal extremities: Moves all, normal inspection psych: Normal affect, normal mood, normal judgment <Edilberto Ruiz, DO - Last Filed: 07/04/25 10:25> Const: General: alert; No acute distress <Holland Aldridge DO - Last Filed: 07/04/25 12:04> Orientation/consciousness: patient oriented x3 <Holland Aldridge DO - Last Filed: 07/04/25 12:04> Limitations: no limitations <Holland Aldridge DO - Last Filed: 07/04/25 12:04> HENMT: Head: normocephalic and atraumatic <Holland Aldridge DO - Last Filed: 07/04/25 12:04> Ears: hearing grossly normal bilaterally <Holland Aldridge DO - Last Filed: 07/04/25 12:04> Face/Nose/Sinus: Normal external nose present and Normal nares present < Holland Aldridge DO - Last Filed: 07/04/25 12:04> Mouth: Yes Normal oral and palatal mucosa present and Yes moist mucous membranes <Holland Aldridge DO - Last Filed: 07/04/25 12:04> Eyes: General: appearance normal, both eyes and all related structures < Holland Aldridge DO - Last Filed: 07/04/25 12:04> Conjunctivae: conjunctivae normal <Holland Aldridge DO - Last Filed: 07/04/25 12:04> Sclera: sclerae normal <Holland Aldridge DO - Last Filed: 07/04/25 12:04> Pupils: Equal, round and reactive pupils present <Holland Aldridge DO - Last Filed: 07/04/25 12:04> EOM: EOMs intact bilaterally <Holland Aldridge DO - Last Filed: 07/04/25 12:04> Neck: Neck: normal visual inspection, full ROM, no lymphadenopathy, supple and no JVD <Holland Aldridge DO - Last Filed: 07/04/25 12:04> Lymphatic: no lymphadenopathy noted <Holland Aldridge DO - Last Filed: 07/04/25 12:04> Chest: Chest palpation & inspection: normal inspection of the chest < Holland Aldridge DO - Last Filed: 07/04/25 12:04> Resp: Effort & Inspection: normal respiratory effort and able to speak in complete sentences <Holland Romeolora DO - Last Filed: 07/04/25 12:04> Auscultation: clear to auscultation bilaterally <Holland Gomezlia DO - Last Filed: 07/04/25 12:04> Percussion: percussion normal <Holland Aldridge DO - Last Filed: 07/04/25 12:04> Cardio: Jugular venous distension: no JVD <Holland Gomezlia DO - Last Filed: 07/04/25 12:04> Rate: regular rate <Holland Gomezlia - Last Filed: 07/04/25 12:04> Rhythm: regular rhythm <Holland Gomezlia DO - Last Filed: 07/04/25 12:04> Heart sounds: S1 normal heart sound present and S2 normal heart sound present <Holland Aldridge, DO - Last Filed: 07/04/25 12:04> Peripheral pulses: Peripheral pulses 2+ throughout <Holland Aldridge - Last Filed: 07/04/25 12:04> GI: Inspection: normal to inspection and obesity <Holland Romeolora DO - Last Filed: 07/04/25 12:04> GI Palp: Yes Soft to palpation, Yes Tenderness to palpation present (GI) (Right upper quadrant), No Guarding due to palpation present (GI) and No Rebound tenderness present <Holland Gomezlia DO - Last Filed: 07/04/25 12:04> Auscultation: normal bowel sounds <Holland Gomezlia, DO - Last Filed: 07/04/25 12:04> : General: Yes no CVA tenderness <Holland SweetYoandy Patricialia DO - Last Filed: 07/04/25 12:04> Back/Spine/Pelvis: Back: no CVA tenderness <Holland SweetYoandy Aldridge DO - Last Filed: 07/04/25 12:04> Skin: General skin exam: normal color and dry skin <Holland SweetYoandy Aldridge DO - Last Filed: 07/04/25 12:04> Neuro: General: patient oriented x3, gait normal, moves all extremities, no focal motor deficits and CN's II-XI intact bilaterally <Holland SweetYoandy Aldridge DO - Last Filed: 07/04/25 12:04> Cranial nerves: Yes Equal, round and reactive pupils present <Holland SweetYoandy Aldridge DO - Last Filed: 07/04/25 12:04> Speech: normal speech <Holland SweetYoandy Aldridge DO - Last Filed: 07/04/25 12:04> Extrem: General: normal to inspection and capillary refill normal <Holland SweetYoandy Aldridge DO - Last Filed: 07/04/25 12:04> Results Labs Result diagrams: 07/04/25 00:19 07/04/25 00:19 <Edilberto Ruiz, DO - Last Filed: 07/04/25 10:25> Labs: Abnormal lab results 07/04/25 Range/Units 00:19 WBC 12.4 H (4.5-10.0) K/mm3 MPV 10.7 H (7.4-10.4) fl [place] # (Auto) 1.0 H (0.1-0.6) K/mm3 Eos # (Auto) 0.4 H (0-0.3) K/mm3 Abs Immat Gran (auto) 0.06 H (0.00-0.031) K/mm3 Absolute Neuts (auto) 8.7 H (1.3-6.7) K/mm3 Total Protein 8.3 H (6.3-8.2) g/dL Diabetes panel 07/04/25 Range/Units 00:19 Sodium 139 (137-145) mmol/L Potassium 3.8 (3.4-5.0) mmol/L Chloride 101 (98-107) mmol/L Carbon Dioxide 29 (22-30) mmol/L BUN 12 (9-20) mg/dL Creatinine 0.99 (0.7-1.3) mg/dL Glucose 107 (65-110) mg/dL Calcium 9.7 (8.4-10.2) mg/dL AST 44 (17-59) U/L ALT 36 (6-50) U/L Alkaline Phosphatase 74 (38-126) U/L Total Protein 8.3 H (6.3-8.2) g/dL Albumin 4.3 (3.5-5.1) g/dL Calcium panel 07/04/25 Range/Units 00:19 Calcium 9.7 (8.4-10.2) mg/dL Albumin 4.3 (3.5-5.1) g/dL Pituitary panel 07/04/25 Range/Units 00:19 Sodium 139 (137-145) mmol/L Potassium 3.8 (3.4-5.0) mmol/L Chloride 101 (98-107) mmol/L Carbon Dioxide 29 (22-30) mmol/L BUN 12 (9-20) mg/dL Creatinine 0.99 (0.7-1.3) mg/dL Glucose 107 (65-110) mg/dL Calcium 9.7 (8.4-10.2) mg/dL Adrenal panel 07/04/25 Range/Units 00:19 Sodium 139 (137-145) mmol/L Potassium 3.8 (3.4-5.0) mmol/L Chloride 101 (98-107) mmol/L Carbon Dioxide 29 (22-30) mmol/L BUN 12 (9-20) mg/dL Creatinine 0.99 (0.7-1.3) mg/dL Glucose 107 (65-110) mg/dL Calcium 9.7 (8.4-10.2) mg/dL Total Bilirubin 0.5 (0.2-1.3) mg/dL AST 44 (17-59) U/L ALT 36 (6-50) U/L Alkaline Phosphatase 74 (38-126) U/L Total Protein 8.3 H (6.3-8.2) g/dL Albumin 4.3 (3.5-5.1) g/dL All other labs normal. <Edilberto Ruiz DO - Last Filed: 07/04/25 10:25> Imaging Abdomen CT scan report/results: report reviewed and image reviewed <Edilberto Ruiz DO - Last Filed: 07/04/25 10:25> Additional studies: ITS Impressions Abdomen/Pelvis CT 07/04/25 08:19 IMPRESSION: 1. Acute cholecystitis. 2. Diffuse hepatic steatosis. <Holland H. Wikiera, DO - Last Filed: 07/04/25 12:04>
--- NOTE | 2025-07-04 10:21 | WPDANESEPPF ---
Anes - Initial Pre Proc Eval Procedure: Operation Date: 07/04/25 10:00 Proposed Procedures p Laparoscopic Cholecystectomy - Holland Aldridge DO Date/Time: 07/04/25 10:21 Surgeon: Diane Gonzales DO Pre Op Diagnosis: Acute cholecystitis Patient Data Age: 24 Gender: M Height: 1.73 m Weight: 134 kg Last Vital Signs Temp 36.1 C L 07/04/25 08:00 Pulse 104 H 07/04/25 08:00 Resp 16 07/04/25 08:00 BP 177/103 H 07/04/25 08:00 Pulse Ox 97 07/04/25 08:00 O2 Del Method Room Air 07/04/25 08:00 Allergies Allergy/AdvReac Type Severity Reaction Status Date / Time iohexol (From contrast - CT, Allergy Intermediate Itching Verified 07/04/25 03:28 X-RAY) nitrofurantoin Allergy Unknown Hives Verified 07/04/25 03:28 gentamicin AdvReac Anaphylaxis Verified 07/04/25 03:28 mupirocin (From Bactroban) AdvReac Anaphylaxis Verified 07/04/25 03:28 Home Medications ?Medication ?Instructions ?Recorded ?Confirmed ?Type albuterol sulfate 90 mcg/actuation 1 puff inhalation Q4H PRN 05/30/23 07/04/25 Rx aerosol inhaler (Ventolin HFA) shortness of breath or wheezing #8.5 grams fluticasone propionate 50 1 spray intranasal DAILY 06/11/23 07/04/25 History mcg/actuation nasal spray,suspension omeprazole 40 mg capsule,delayed 40 mg PO DAILY #30 caps 11/11/23 07/04/25 Rx release montelukast 10 mg tablet 10 mg PO DAILY #90 tabs 06/20/24 07/04/25 Rx (Singulair) aluminum-mag hydroxide-simethicone 10 ml PO QID PRN dyspepsia #200 mL 04/27/25 07/04/25 Rx 200 mg-200 mg-20 mg/5 mL oral susp (Maalox Advanced) ipratropium 0.5 mg-albuterol 3 mg 3 ml inhalation QID 07/04/25 07/04/25 History (2.5 mg base)/3 mL nebulization soln metformin 500 mg tablet,extended 500 mg PO DAILY diabetes 07/04/25 07/04/25 History release 24 hr mometasone 220 mcg/actuation(60 1 inh inhalation Q12H 07/04/25 07/04/25 History doses) breath activated powder inhaler (Asmanex Twisthaler) Laboratory Tests 07/04/25 07/04/25 00:19 07:32 WBC 12.4 H K/mm3 (4.5-10.0) RBC 4.93 M/mm3 (4.6-6.20) Hgb 14.5 g/dL (14.0-18.0) Hct 43.6 % (42.0-52.0) MCV 88.4 fl (80-100) MCH 29.4 pg (26-34) MCHC 33.3 g/dl (32-36) RDW 13.0 % (11.5-14.5) Plt Count 362 k/mm3 (150-375) MPV 10.7 H fl (7.4-10.4) Immature Gran % (Auto) 0.5 % (0-0.5) Neut % (Auto) 69.5 % (45.5-73.1) Lymph % (Auto) 18.3 % (18.3-44.2) [place] % (Auto) 7.9 % (2.6-8.5) Eos % (Auto) 3.3 % (0-4.4) Baso % (Auto) 0.5 % (0.2-1.2) Lymph # (Auto) 2.27 K/mm3 (0.9-3.2) [place] # (Auto) 1.0 H K/mm3 (0.1-0.6) Eos # (Auto) 0.4 H K/mm3 (0-0.3) Baso # (Auto) 0.1 K/mm3 (0.0-0.1) Abs Immat Gran (auto) 0.06 H K/mm3 (0.00-0.031) Absolute Neuts (auto) 8.7 H K/mm3 (1.3-6.7) Absolute Nucleated RBC 0.000 K/mm3 (0.0-0.012) Nucleated RBC % 0.0 % (0.0-0.2) Sodium 139 mmol/L (137-145) Potassium 3.8 mmol/L (3.4-5.0) Chloride 101 mmol/L (98-107) Carbon Dioxide 29 mmol/L (22-30) Anion Gap 9 mmol/L (4-12) BUN 12 mg/dL (9-20) Creatinine 0.99 mg/dL (0.7-1.3) Estim Creat Clear Calc 133 ml/min Estimated GFR > 60 (59 - ) Glucose 107 mg/dL (65-110) Calcium 9.7 mg/dL (8.4-10.2) Total Bilirubin 0.5 mg/dL (0.2-1.3) AST 44 U/L (17-59) ALT 36 U/L (6-50) Alkaline Phosphatase 74 U/L (38-126) Total Protein 8.3 H g/dL (6.3-8.2) Albumin 4.3 g/dL (3.5-5.1) Lipase 82 U/L (23-300) Urine Color Yellow (Yellow) Urine Appearance Clear (Clear) Urine pH 6.0 (5.0-9.0) Ur Specific [place] 1.024 (1.001-1.035) Urine Protein Negative mg/dL (Negative) Urine Glucose (UA) Negative mg/dL (Negative) Urine Ketones Negative mg/dL (Negative) Ur Blood (Man) Negative (Negative) Urine Nitrate Negative (Negative) Urine Bilirubin Negative (Negative) Urine Urobilinogen 1.0 mg/dL (<2.0) Leukocyte Esterase Rfl Negative CHRISTAL/UL (Negative) Patient hx anesthesia problems: none Family hx anesthesia problems: none Results Review: All pre-operative results and documents have been reviewed as part of the pre-operative evaluation. [facility] Past Medical History Medical History Anxiety Nicotine dependence Intermittent asthma BMI 40.0-44.9, adult Morbid (severe) obesity due to excess calories Surgical History Surgical History Status post myringotomy with tube placement of both ears X5 with his last set falling out at age 16 Family History Family History Father Diabetes mellitus COPD (chronic obstructive pulmonary disease) CHF (congestive heart failure) Mother Rheumatoid arthritis Sibling No problems noted. Other Hypertension Social History Social History Social History: He reports that he and his have dated since they were in their early teens. They have been for the last year. They have 3 daughters ages 4, 8 and 9 years old. He works at the [employer]. He has smoked or vape since he was 20 years old. He vapes quite heavily. He drinks alcohol about once a month. He used to use marijuana on a somewhat frequent basis but reportedly has not used in 3 years. Code status: Full code Surrogate decision maker: Ermelinda Calero () Smoking status: Current every day smoker Tobacco type: e-cigarettes/vaping Second hand tobacco smoke exposure: Yes Alcohol intake: current Drinks per week: 1 Substance use: former Substance use type: marijuana Last use: 3 years ago Lack of Transportation: No Lack of Food: Never True Current Housing: I Have Housing Concerned About Future Housing: No Difficulty Paying Gas/Electric Bills: No Difficulty Paying for Meds: No Currently Unemployed: No Education: High School Diploma/GED Difficulty w/ Childcare or Family Care: No Living arrangements: with family Occupation/Education: occupation 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 Informed Consent: The patient's anesthetic plan and its attendant risks and benefits were discussed with the patient/family/POA. Questions were solicited and answers provided to the satisfaction of the patient/family/POA.
[2025-07-04] MEDS: LACTATED RINGERS 1,000 ML 30 ML IV CONT (10:45)
--- NOTE | 2025-07-04 10:48 | WPDHPUPDATE1 ---
History and Physical Update Update Date/Time: 07/04/25 10:48 History and Physical has been reviewed, including an updated exam of the patient. There are NO changes in the patient's condition. Risks, benefits, and alternatives have been discussed and questions answered. Patient agrees to proceed with procedure.
[2025-07-04] MEDS: BUPIVACAINE/EPINEPHRINE 0.5% 50 ML VIAL 30 ML INFILTRATE (11:14)
--- NOTE | 2025-07-04 11:32 | S_PTH ---
PATIENT: James Brown LOC: [id number] U#:[id number] AGE/SX: 24/M ROOM: 300 RE07/04/[address]: Stacey Hardin MD : 2000 BED: 01 DIS: 07/05/2025 SPEC #: [id number] RECD: 07/05/25 07:14 STATUS: LILIA REQ #: [id number] NASH: 07/04/25 11:[address]: Holland Aldridge DEPT: [facility] Surgical RECD BY: Sanjuanita Gomes ENTERED: 07/05/25 07:14 SP TYPE: Surgical OTHR DR: DO Asaf Ahn MD Tissues: A - Gallbladder Procedures: Hematoxylin and Eosin Stain Gross and Microscopic Level 3
--- NOTE | 2025-07-04 11:56 | W.PM.PROC2 ---
Procedure Note - Detailed Date of Procedure 07/04/25 Pre-op Diagnosis Acute cholecystitis Post-op Diagnosis Same (Acute gangrenous cholecystitis) Procedure Performed Laparoscopic cholecystectomy Surgeon Holland Aldridge DO Artificial Teeth Inspector Edilberto Ruiz DO Anesthesia General and Local (0.5% bupivacaine) Indications This is a 24-year-old man who presented to the emergency department with severe right upper quadrant abdominal pain that started about 1 week ago. His pain had been progressing. He had gone to [place] emergency department a few days ago and workup was negative then. He then presented to the emergency department here overnight and CT showed evidence of acute cholecystitis. He continued to have severe pain this morning and therefore further discussions were made with the patient about treatment options and decision was made to proceed with laparoscopic cholecystectomy, possible open. Findings Laparoscopic cholecystectomy was performed. The gallbladder appeared tense and dilated, and the gallbladder wall was indurated and appeared gangrenous in regions. There were pericholecystic adhesions involving the omentum over almost the entire surface of the gallbladder. The gallbladder was aspirated with a laparoscopic aspirating needle to decompress it to allow for adequate grasping and retraction. Gallbladder had many small to medium-sized gallstones within. He even the cystic duct appeared somewhat gangrenous, but I was able to find a portion of the cystic duct that appeared viable and placed my clips along that portion. The gallbladder was removed and sent to the lab for pathology. Dr. Ruiz PGY3 was present and assisted with the entire procedure. Description of Procedure Procedure as well as risks, benefits, and alternatives were discussed with patient. Written consent was obtained and placed in chart prior to procedure. The patient was brought back to surgical suite. Patient was placed in supine position on operating table. Time-out was done to confirm patient and procedure. Patient was then intubated by the anesthesia department. Abdomen was prepped and draped in sterile fashion using chlorhexidine prep. 0.5% bupivacaine with epinephrine was infiltrated at each site of incision. A 5 millimeter incision was made near the umbilicus, and a 5 millimeter Optiview trocar was advanced through the abdominal layers under direct visualization. Once inside the abdominal cavity, carbon dioxide was insufflated to create a pneumoperitoneum. The camera was inserted and the abdomen was inspected. No immediate abnormalities were identified. The patient was placed in reverse Trendelenburg position and rotated slightly to the left. An 11 millimeter incision was made in the subxiphoid region, and an 11 millimeter trocar was inserted under direct visualization. Two 5 millimeter incisions were made in the right upper quadrant, and two 5 millimeter trocars were inserted under direct visualization. The gallbladder was identified and grasped at the fundus and retracted superiorly. It was then grasped at the infundibulum retracted laterally. Careful dissection around the neck of the gallbladder was performed using blunt dissection with a [place] grasper and hook electrocautery. The cystic duct was identified, and a window was created behind it. The cystic artery was also identified and a window was created behind it. The critical view of safety was identified, visualizing the cystic duct running directly into the neck of the gallbladder, and the cystic artery running directly into the wall of the gallbladder. A 5 millimeter clip battery container tester aluminum was then used to place 2 clips proximally and 1 clip distally on both the cystic duct and cystic artery. They were then both transected using endoscopic scissors. Once safely away from the robel hepatitis, the gallbladder was dissected free from the liver bed using hook electrocautery. Hemostasis was achieved along the way. The gallbladder was removed completely and then removed through the subxiphoid port. The liver bed was then inspected. Hemostasis appeared adequate, and our clips appeared secure. The area was gently irrigated with sterile saline. No other abnormalities were seen. The patient was flattened out in bed, and 1 final inspection was made around the abdominal cavity. The subxiphoid port was removed, and a Isaac Moses cone was used to approximate the fascia with an 0-Vicryl simple interrupted suture. The remaining ports were then removed under direct visualization, the camera was removed, and the pneumoperitoneum was released. The skin of the incisions was approximated using 4-0 Monocryl subcuticular sutures. Exofin glue was applied on top. The patient was then awakened from anesthesia, extubated, and transferred to recovery. Estimated Blood Loss 20 Urine Output 0 Pathology Yes (Gallbladder) Complications No immediate complications Condition Stable Disposition Floor [facility] Billing Surgery - Charge Forward: Surgery Billing
--- NOTE | 2025-07-04 13:30 | PC.NURSE ---
Returned to room from OR per hospital bed.
[2025-07-04] MEDS: HYDROcodone/acetaminophen (*CRX) 10-325 MG TABLET 1 TAB PO ×2 (14:57→20:14)
[2025-07-05] VITALS (10 sets, daily range): BP systolic 121–130; BP diastolic 70–82; PULSE 103–118; RESP 12–20; TEMP 36.1–37.3; O2SAT 89–96
[2025-07-05] MEDS: PIPERACILLIN/TAZOBACTAM SOD 3.375 GM in SODIUM CHLORIDE 0.9% IV 50 ML 100 ML IVPB ×4 (00:08→17:22)
[2025-07-05] MEDS: HYDROcodone/acetaminophen (*CRX) 10-325 MG TABLET 1 TAB PO ×3 (00:08→16:29)
[2025-07-05] MEDS: IPRATROPIUM 0.5 MG/ALBUTEROL SULFATE 2.5 MG (BASE) AMPUL.NEB 3 ML INHALATION ×2 (05:33→14:06)
[2025-07-05 05:50] LABS: Hematocrit 39.9 % (42.0-52.0); Hemoglobin 12.8 g/dL (14.0-18.0); Mean Corpuscular HGB Conc 32.1 g/dl (32-36); Mean Corpuscular Hemoglobin 29.1 pg (26-34); Mean Corpuscular Volume 90.7 fl (80-100); Platelet Count Result 309 k/mm3 (150-375); Red Blood Count 4.40 M/mm3 (4.6-6.20); White Blood Count 11.5 K/mm3 (4.5-10.0)
[2025-07-05 06:21] LABS: Alanine Aminotransferase 39 U/L (6-50); Albumin Level 3.7 g/dL (3.5-5.1); Alkaline Phosphatase 80 U/L (38-126); Anion Gap 9 mmol/L (4-12); Aspartate Amino Transferase 41 U/L (17-59); Bilirubin,Total 1.0 mg/dL (0.2-1.3); Blood Urea Nitrogen 8 mg/dL (9-20); Calcium 8.5 mg/dL (8.4-10.2); Carbon Dioxide 26 mmol/L (22-30); Chloride 101 mmol/L (98-107); Estimated CRCL calculation 117 ml/min; Estimated Glomerular Filt Rate > 60; Glucose 114 mg/dL (65-110); Magnesium 1.9 mg/dL (1.6-2.3); Potassium 3.4 mmol/L (3.4-5.0); Sodium 136 mmol/L (137-145); Total Protein 7.2 g/dL (6.3-8.2)
--- NOTE | 2025-07-05 07:26 | P.PNGS_ITS ---
Progress Note: A&P Assessment and Plan (1) Acute cholecystitis: Code(s): K81.0 - Acute cholecystitis <Edilberto MitulYoandy Ruiz, DO - Last Filed: 07/05/25 07:31> Status: Acute <Edilberto Chuy Ruiz, DO - Last Filed: 07/05/25 07:31> Assessment and Plan: * Surgically stable on POD#1. OK to discharge from surgical standpoint either this afternoon or tomorrow. F/u in office in 2 weeks. Discharge instructions discussed with patient. <Holland Aldridge, DO - Last Filed: 07/05/25 12:56> (2) Gangrenous cholecystitis: Code(s): K81.0 - Acute cholecystitis <Edilberto MitulYoandy Ruiz, DO - Last Filed: 07/05/25 07:31> Status: Acute <Edilberto MitulYoandy Ruiz DO - Last Filed: 07/05/25 07:31> Assessment and Plan: - POD#1 s/p lap royal - Gallbladder acutely inflamed with gangrenous changes on lap royal yesterday - Pain near incisions, doing well postoperatively - advance to regular diet - As needed pain and antiemetics - Likely DC home today - Follow up in clinic with Dr. Aldridge in 2 weeks A&P discussed with Dr. Aldridge <Edilberto Ruiz, DO - Last Filed: 07/05/25 07:31> Subjective Subjective Date/Time Seen: 07/05/25 07:26 <Edilberto Ruiz DO - Last Filed: 07/05/25 07:31> Interval history: POD# 1 s/p laparoscopic cholecystectomy. Doing well this am. Incisions CDI. Pain appropriate, much less tender in RUQ. Mildy tachy to low 100's. Pressures okay. Hgb drift from 14.5 to 12.8, likely partially dilutional. Ambulating. Urinating. <Edilberto Ruiz DO - Last Filed: 07/05/25 07:31> Review of Systems Review of Systems: All systems reviewed & are unremarkable except as noted in HPI. <Edilberto Ruiz DO - Last Filed: 07/05/25 07:31> All systems reviewed & are unremarkable except as noted in HPI and below <Edilberto Ruiz DO - Last Filed: 07/05/25 07:31> Exam Narrative: general: Awake, alert, no acute distress HEENT: NC/AT, mucous membranes pink and moist neck: No masses or swelling, no JVD heart: Tachycardic to low 100s, otherwise HDS lungs: Symmetric expansion, no IWOB, on room air abdomen: Soft, aTTP near incisions, incisions CDI, nondistended, non peritoneal extremities: Moves all, normal inspection psych: Normal affect, normal mood, normal judgment <Edilberto Ruiz, DO - Last Filed: 07/05/25 07:31> Objective Data Vital Signs Vital Signs: Vital Signs - 24 hr 07/04/25 08:00 07/04/25 08:00 07/04/25 12:15 Temperature 97.0 F L 98.1 F Pulse Rate 104 H 105 H Respiratory Rate 16 22 H Blood Pressure 177/103 H 108/44 L Pulse Oximetry 97 96 Oxygen Delivery Room Air Simple Face Mask Oxygen Flow Rate 8 Fraction of Inspired Oxygen 07/04/25 12:30 07/04/25 12:38 07/04/25 12:45 Temperature 98.8 F Pulse Rate 107 H 110 H 116 H Respiratory Rate 20 20 22 H Blood Pressure 136/66 136/67 149/75 H Pulse Oximetry 100 100 100 Oxygen Delivery Simple Face Mask Simple Face Mask Simple Face Mask Oxygen Flow Rate 8 8 8 Fraction of Inspired Oxygen 07/04/25 13:00 07/04/25 13:10 07/04/25 13:19 Temperature 97.9 F Pulse Rate 120 H 113 H 114 H Respiratory Rate 22 H 16 20 Blood Pressure 149/85 H 140/76 144/78 H Pulse Oximetry 94 94 94 Oxygen Delivery Room Air Nasal Cannula Nasal Cannula Oxygen Flow Rate 2 2 Fraction of Inspired Oxygen 07/04/25 13:20 07/04/25 13:40 07/04/25 13:55 Temperature 97.8 F 97.2 F L Pulse Rate 114 H 116 H Respiratory Rate 14 14 Blood Pressure 133/67 139/75 Pulse Oximetry 94 97 98 Oxygen Delivery Nasal Cannula Oxygen Flow Rate 2 Fraction of Inspired Oxygen 28 07/04/25 14:25 07/04/25 15:25 07/04/25 18:47 Temperature 97.2 F L 96.8 F L Pulse Rate 116 H 115 H Respiratory Rate 14 14 Blood Pressure 136/73 105/60 Pulse Oximetry 98 97 100 Oxygen Delivery Nasal Cannula Oxygen Flow Rate 2 Fraction of Inspired Oxygen 07/04/25 19:09 07/04/25 23:09 07/05/25 04:00 Temperature 98.7 F 97.7 F 99.2 F Pulse Rate 112 H 105 H 105 H Respiratory Rate 12 12 12 Blood Pressure 134/73 124/60 121/70 Pulse Oximetry 93 93 90 Oxygen Delivery Oxygen Flow Rate Fraction of Inspired Oxygen 07/05/25 05:34 07/05/25 05:39 07/05/25 05:43 Temperature Pulse Rate 103 H 104 H Respiratory Rate 20 20 Blood Pressure Pulse Oximetry 96 Oxygen Delivery Room Air Oxygen Flow Rate Fraction of Inspired Oxygen <Edilberto Ruiz, DO - Last Filed: 07/05/25 07:31> Intake/Output Intake/Output: Intake & Output 07/02/25 07/03/25 07/04/25 07/05/25 23:59 23:59 23:59 23:59 Intake Total 1740 400 Output Total 450 Balance 1290 400 <Edilberto Ruiz, DO - Last Filed: 07/05/25 07:31> Meds/Results Medications: Active Medications Generic Name Dose Route Start Last Admin Trade Name Freq PRN Reason Stop Dose Admin Hydrocodone Bitart/Acetaminophen 1 tab 07/04/25 13:24 Hydrocodone/Acetaminophen (*Crx) 5-325 Mg Tablet PO Q4H PRN Pain Rated 4-6 Hydrocodone Bitart/Acetaminophen 1 tab 07/04/25 13:24 07/05/25 04:14 Hydrocodone/Acetaminophen (*Crx) 10-325 Mg Tablet PO 1 tab Q4H PRN Administration Pain Rated 7-10 Albuterol 2 puff 07/04/25 03:43 Albuterol Sulfate (*Sp) Aerosol 1 Puff INHALATION Q4HRT PRN Shortness Of Breath Or Wheezing Albuterol/Ipratropium 3 ml 07/05/25 05:15 07/05/25 05:33 Ipratropium 0.5 Mg/Albuterol Sulfate 2.5 Mg (Base) Ampul.Neb 3 Ml INHALATION 3 ml Q6HRT PRN Administration Shortness Of Breath Diphenhydramine HCl 25 mg 07/04/25 13:24 Diphenhydramine Hcl Inj 50 Mg/Ml Vial IV PUSH Q6H PRN Itching Enoxaparin Sodium 40 mg 07/05/25 09:00 Enoxaparin 40 Mg/0.4 Ml Syringe SUB-Q DAILY SHIRA Fluticasone Propionate 1 spray 07/04/25 09:00 07/04/25 08:02 Fluticasone Propionate 0.05% Na Spr 16 Gm Btl (*Bkc) NASAL 1 spray DAILY SHIRA Administration Hydromorphone HCl 1 mg 07/04/25 13:24 Hydromorphone Hcl Inj (*Crx) 1 Mg/Ml Syr IV PUSH Q2H PRN Breakthrough Pain Rated 7-10 or NPO Hydromorphone HCl 0.5 mg 07/04/25 13:24 Hydromorphone Hcl Inj (*Crx) 1 Mg/Ml Syr IV PUSH Q2H PRN Breakthrough Pain Rated 4-6 or NPO Piperacillin Sod/Tazobactam 50 mls @ 100 mls/hr 07/04/25 07:00 07/05/25 06:39 Sod 3.375 gm/ Sodium Chloride IVPB Infused Q6HR SHIRA Infusion Ibuprofen 800 mg in 200 mls @ 400 mls/hr 07/04/25 13:24 Caldolor 800 Mg/200 Ml IVPB Q6H PRN Breakthrough Pain Rated 1-3 or NPO Ibuprofen 600 mg 07/04/25 13:24 Ibuprofen 600 Mg Tablet PO Q6H PRN Pain Rated 1-3 Naloxone HCl 0.1 mg 07/04/25 13:24 Naloxone Hcl 0.4 Mg/Ml Vial IV PUSH Q2M PRN Opiate Reversal Nicotine 1 patch 07/04/25 04:04 Nicotine (*Pbkc) 21 Mg Patch TRANSDERM DAILY PRN Nicotine withdrawal Ondansetron HCl 4 mg 07/04/25 03:56 Ondansetron Inj 4 Mg/2 Ml Vial IV PUSH Q6H PRN Nausea And Vomiting Pantoprazole Sodium 40 mg 07/04/25 09:00 07/04/25 08:01 Pantoprazole Sodium Iv 40 Mg Vial IV PUSH 40 mg QAM SHIRA Administration <Edilberto Ruiz, DO - Last Filed: 07/05/25 07:31> Radiology Results: ITS Impressions Abdomen/Pelvis CT 07/04/25 08:19 IMPRESSION: 1. Acute cholecystitis. 2. Diffuse hepatic steatosis. <Edilberto Ruiz, DO - Last Filed: 07/05/25 07:31> Labs Labs: Laboratory Results - last 24 hr 07/04/25 07/05/25 07:32 04:51 WBC 11.5 H RBC 4.40 L Hgb 12.8 L Hct 39.9 L MCV 90.7 MCH 29.1 MCHC 32.1 RDW 13.4 Plt Count 309 MPV 10.8 H Sodium 136 L Potassium 3.4 Chloride 101 Carbon Dioxide 26 Anion Gap 9 BUN 8 L Creatinine 1.14 Estim Creat Clear Calc 117 Estimated GFR > 60 Glucose 114 H Calcium 8.5 Magnesium 1.9 Total Bilirubin 1.0 AST 41 ALT 39 Alkaline Phosphatase 80 Total Protein 7.2 Albumin 3.7 Urine Color Yellow Urine Appearance Clear Urine pH 6.0 Ur Specific [place] 1.024 Urine Protein Negative Urine Glucose (UA) Negative Urine Ketones Negative Ur Blood (Man) Negative Urine Nitrate Negative Urine Bilirubin Negative Urine Urobilinogen 1.0 Leukocyte Esterase Rfl Negative <Edilberto Ruiz DO - Last Filed: 07/05/25 07:31>
[2025-07-05] MEDS: ENOXAPARIN 40 MG/0.4 ML SYRINGE SUB-Q (08:02)
[2025-07-05] MEDS: PANTOPRAZOLE SODIUM IV 40 MG VIAL IV PUSH (08:02)
[2025-07-05] MEDS: FLUTICASONE PROPIONATE 0.05% NA SPR 16 GM BTL (*BKC) 1 SPRAY NASAL (09:58)
[2025-07-05] MEDS: POTASSIUM CHLORIDE 20 MEQ PACKET (FOR LIQUID) 40 MEQ PO (09:58)
--- NOTE | 2025-07-05 10:49 | PM.IMPN ---
Progress Note: A&P Assessment and Plan (1) Acute cholecystitis: Code(s): K81.0 - Acute cholecystitis Status: Acute (2) Gastroesophageal reflux disease without esophagitis: Code(s): K21.9 - Gastro-esophageal reflux disease without esophagitis Status: Acute (3) Elevated blood pressure reading without diagnosis of hypertension: Code(s): R03.0 - Elevated blood-pressure reading, without diagnosis of hypertension Status: Acute (4) Intermittent asthma: Qualifiers: Asthma severity: mild Asthma complication type: with status asthmaticus Qualified Code(s): J45.22 - Mild intermittent asthma with status asthmaticus Code(s): J45.20 - Mild intermittent asthma, uncomplicated Status: Chronic (5) Nicotine dependence: Qualifiers: Nicotine product type: other Substance use status: uncomplicated Qualified Code(s): F17.290 - Nicotine dependence, other tobacco product, uncomplicated Code(s): F17.200 - Nicotine dependence, unspecified, uncomplicated Status: Acute (6) Suspected sleep apnea: Code(s): R29.818 - Other symptoms and signs involving the nervous system Status: Acute Plan Patient presents with physical exam and imaging consistent with acute cholecystitis. Patient did have some leukocytosis and mild tachycardia meeting SIRS criteria but tachycardia resolved after 2 L of IV fluid administration. Patient was started on empiric antibiotic therapy with Zosyn. No evidence of choledocholithiasis or biliary obstruction. General surgery has been consulted. Patient is NPO for he possible surgical intervention. Will continue maintenance IV fluid hydration. Will repeat CBC in a.m.. Patient did have a mildly elevated serum protein suggesting some mild hemoconcentration/dehydration. Will continue maintenance IV fluids. Patient does not have a known history of hypertension but has had elevated blood pressures since arrival to the hospital. Possibly due to acute pain but cannot rule out underlying essential hypertension. Will provide pain medications and will monitor blood pressures. If blood pressures remain elevated we may need to start antihypertensive medications. Patient does have history of intermittent has been but is not having any respiratory symptoms at this time. Will resume home Singulair want able to take p.o. will continue p.r.n. inhalers. Will substitute the patient's oral PPI with IV Protonix while NPO. Patient does have a longstanding history of nicotine abuse. Will offer nicotine patch if needed. A patient does have morbid obesity and has an elevated stop Bang score. The patient himself is suspicious that he has obstructive sleep apnea but has not had a sleep study. He would benefit from outpatient polysomnogram once acute medical conditions at been handled. He would benefit from diet lifestyle modification. Review H&P, patient has just returned from surgery, s/p appendectomy today and sleeping, patient family is present, General surgeon has order dinner, patient is clinically stable, will monitor. Subjective Date/time seen: 07/04/25 Interval history: Right upper abdominal pain Narrative: 24-year-old male with a past medical history of morbid obesity, diabetes mellitus, asthma and GERD who presented to the ER via private vehicle due to right upper quadrant pain. Patient has been having pain for about a week. He reported that the pain started after [facility] last week. Pain is in the right upper quadrant radiating to the back and is worse with eating fatty foods. He went to [place] shortly after onset of symptoms and had a CT of the chest abdomen pelvis which was negative for acute process. He was told that he had gas and a go home and take some Gas-X. He tried taking Tylenol, Gas-X and Bentyl without improvement. He reports that the pain is been constant. He reports that the pain is 10/10 intensity and a cannot stand it. He states that the pain is sharp and stabbing and radiates through to his back He has been having some nausea but no vomiting. Today he stopped at [facility] and 3 hours later his pain intensified again any could not stand the symptoms anymore so he came into the ER. In the ER the patient had a CT performed which demonstrated the gallbladder dilatation and inflammation. No evidence of gallstones. Patient was afebrile but did have some mild tachycardia and leukocytosis with a white count of 12.4. He received Zofran and morphine morphine did not relieve his pain he subsequently received 2 doses of Dilaudid with some improvement. On arrival to the medical floor the patient was somnolent falling asleep during nursing is intake interview. But he was still waking up in asking for more pain medication. The patient reports that he is diagnosed with ?pre diabetes? back around April. He was started on metformin at that time. Despite eliminating sugar and reportedly trying to eat healthier he has continued to gain weight and is gained about 25 lb. Review H&P, patient has just returned from surgery, s/p appendectomy today and sleeping, patient family is present, General surgeon has order dinner, patient is clinically stable, will monitor. Review of Systems Review of Systems: 12 systems were reviewed with pertinent positives and negatives per HPI. Except as documented in the HPI, all other systems were reviewed and are negative. Exam Narrative: Morbidly obese Patient is comfortable, NAD HEENT: eyes are clear and none icteric LUNGS:CTA HEART: RR S1S2 ABD: BS+, Soft and nontender Lower extremities: no edema SKIN: nonjaundiced Neuro: grossly intact. Objective Data Vital Signs Vital Signs: Vital Signs - 24 hr 07/04/25 12:15 07/04/25 12:30 07/04/25 12:38 Temperature 36.7 C Pulse Rate 105 H 107 H 110 H Respiratory Rate 22 H 20 20 Blood Pressure 108/44 L 136/66 136/67 Pulse Oximetry 96 100 100 Oxygen Delivery Simple Face Mask Simple Face Mask Simple Face Mask Oxygen Flow Rate 8 8 8 Fraction of Inspired Oxygen 07/04/25 12:45 07/04/25 13:00 07/04/25 13:10 Temperature 37.1 C Pulse Rate 116 H 120 H 113 H Respiratory Rate 22 H 22 H 16 Blood Pressure 149/75 H 149/85 H 140/76 Pulse Oximetry 100 94 94 Oxygen Delivery Simple Face Mask Room Air Nasal Cannula Oxygen Flow Rate 8 2 Fraction of Inspired Oxygen 07/04/25 13:19 07/04/25 13:20 07/04/25 13:40 Temperature 36.6 C 36.6 C Pulse Rate 114 H 114 H Respiratory Rate 20 14 Blood Pressure 144/78 H 133/67 Pulse Oximetry 94 94 97 Oxygen Delivery Nasal Cannula Nasal Cannula Oxygen Flow Rate 2 2 Fraction of Inspired Oxygen 28 07/04/25 13:55 07/04/25 14:25 07/04/25 15:25 Temperature 36.2 C L 36.2 C L 36.0 C L Pulse Rate 116 H 116 H 115 H Respiratory Rate 14 14 14 Blood Pressure 139/75 136/73 105/60 Pulse Oximetry 98 98 97 Oxygen Delivery Oxygen Flow Rate Fraction of Inspired Oxygen 07/04/25 18:47 07/04/25 19:09 07/04/25 23:09 Temperature 37.1 C 36.5 C Pulse Rate 112 H 105 H Respiratory Rate 12 12 Blood Pressure 134/73 124/60 Pulse Oximetry 100 93 93 Oxygen Delivery Nasal Cannula Oxygen Flow Rate 2 Fraction of Inspired Oxygen 07/05/25 04:00 07/05/25 05:34 07/05/25 05:39 Temperature 37.3 C Pulse Rate 105 H 103 H Respiratory Rate 12 20 Blood Pressure 121/70 Pulse Oximetry 90 96 Oxygen Delivery Room Air Oxygen Flow Rate Fraction of Inspired Oxygen 07/05/25 05:43 07/05/25 07:09 07/05/25 07:54 Temperature 36.1 C L 36.1 C L Pulse Rate 104 H 108 H 108 H Respiratory Rate 20 16 16 Blood Pressure 125/77 125/77 Pulse Oximetry 91 91 Oxygen Delivery Oxygen Flow Rate Fraction of Inspired Oxygen 07/05/25 08:00 Temperature Pulse Rate Respiratory Rate Blood Pressure Pulse Oximetry Oxygen Delivery Room Air Oxygen Flow Rate Fraction of Inspired Oxygen Intake/Output Intake/Output: Intake & Output 07/02/25 07/03/25 07/04/25 07/05/25 23:59 23:59 23:59 23:59 Intake Total 1740 400 Output Total 450 Balance 1290 400 Meds/Results Medications: Active Medications Generic Name Dose Route Start Last Admin Trade Name Freq PRN Reason Stop Dose Admin Hydrocodone Bitart/Acetaminophen 1 tab 07/04/25 13:24 Hydrocodone/Acetaminophen (*Crx) 5-325 Mg Tablet PO Q4H PRN Pain Rated 4-6 Hydrocodone Bitart/Acetaminophen 1 tab 07/04/25 13:24 07/05/25 04:14 Hydrocodone/Acetaminophen (*Crx) 10-325 Mg Tablet PO 1 tab Q4H PRN Administration Pain Rated 7-10 Albuterol 2 puff 07/04/25 03:43 Albuterol Sulfate (*Sp) Aerosol 1 Puff INHALATION Q4HRT PRN Shortness Of Breath Or Wheezing Albuterol/Ipratropium 3 ml 07/05/25 05:15 07/05/25 05:33 Ipratropium 0.5 Mg/Albuterol Sulfate 2.5 Mg (Base) Ampul.Neb 3 Ml INHALATION 3 ml Q6HRT PRN Administration Shortness Of Breath Diphenhydramine HCl 25 mg 07/04/25 13:24 Diphenhydramine Hcl Inj 50 Mg/Ml Vial IV PUSH Q6H PRN Itching Enoxaparin Sodium 40 mg 07/05/25 09:00 07/05/25 08:02 Enoxaparin 40 Mg/0.4 Ml Syringe SUB-Q 40 mg DAILY SHIRA Administration Fluticasone Propionate 1 spray 07/04/25 09:00 07/05/25 09:58 Fluticasone Propionate 0.05% Na Spr 16 Gm Btl (*Bkc) NASAL 1 spray DAILY SHIRA Administration Hydromorphone HCl 1 mg 07/04/25 13:24 Hydromorphone Hcl Inj (*Crx) 1 Mg/Ml Syr IV PUSH Q2H PRN Breakthrough Pain Rated 7-10 or NPO Hydromorphone HCl 0.5 mg 07/04/25 13:24 Hydromorphone Hcl Inj (*Crx) 1 Mg/Ml Syr IV PUSH Q2H PRN Breakthrough Pain Rated 4-6 or NPO Piperacillin Sod/Tazobactam 50 mls @ 100 mls/hr 07/04/25 07:00 07/05/25 06:39 Sod 3.375 gm/ Sodium Chloride IVPB Infused Q6HR SHIRA Infusion Ibuprofen 800 mg in 200 mls @ 400 mls/hr 07/04/25 13:24 Caldolor 800 Mg/200 Ml IVPB Q6H PRN Breakthrough Pain Rated 1-3 or NPO Ibuprofen 600 mg 07/04/25 13:24 Ibuprofen 600 Mg Tablet PO Q6H PRN Pain Rated 1-3 Naloxone HCl 0.1 mg 07/04/25 13:24 Naloxone Hcl 0.4 Mg/Ml Vial IV PUSH Q2M PRN Opiate Reversal Nicotine 1 patch 07/04/25 04:04 Nicotine (*Pbkc) 21 Mg Patch TRANSDERM DAILY PRN Nicotine withdrawal Ondansetron HCl 4 mg 07/04/25 03:56 Ondansetron Inj 4 Mg/2 Ml Vial IV PUSH Q6H PRN Nausea And Vomiting Pantoprazole Sodium 40 mg 07/04/25 09:00 07/05/25 08:02 Pantoprazole Sodium Iv 40 Mg Vial IV PUSH 40 mg QAM SHIRA Administration Radiology Results: ITS Impressions Abdomen/Pelvis CT 07/04/25 08:19 IMPRESSION: 1. Acute cholecystitis. 2. Diffuse hepatic steatosis. Labs Labs: Laboratory Results - last 24 hr 07/05/25 04:51 WBC 11.5 H RBC 4.40 L Hgb 12.8 L Hct 39.9 L MCV 90.7 MCH 29.1 MCHC 32.1 RDW 13.4 Plt Count 309 MPV 10.8 H Sodium 136 L Potassium 3.4 Chloride 101 Carbon Dioxide 26 Anion Gap 9 BUN 8 L Creatinine 1.14 Estim Creat Clear Calc 117 Estimated GFR > 60 Glucose 114 H Calcium 8.5 Magnesium 1.9 Total Bilirubin 1.0 AST 41 ALT 39 Alkaline Phosphatase 80 Total Protein 7.2 Albumin 3.7 Quality VTE Prophylaxis VTE prophylaxis: pharmacologic ordered (Will start Lovenox 40 mg q.12 hours after surgery)
--- NOTE | 2025-07-05 13:02 | WPDANESPN ---
Anes - Prog Note Post-Op Date/Time: 07/05/25 13:02 Cardiovascular status: normal Respiratory status: normal Airway patency: baseline Mental status: baseline Post-Op hydration status: normal Vital Signs: Last Vital Signs Temp 36.2 C L 07/05/25 11:09 Pulse 103 H 07/05/25 11:09 Resp 16 07/05/25 11:09 BP 130/82 07/05/25 11:09 Pulse Ox 92 07/05/25 11:09 O2 Del Method Room Air 07/05/25 08:00 O2 Flow Rate 2 07/04/25 18:47 FiO2 28 07/04/25 13:20 Pain Score (VAS): 2 I/O: Intake & Output 07/04/25 07/05/25 07/05/25 23:59 07:59 15:59 Intake Total 290 400 0 Output Total 450 Balance -160 400 0 Laboratory Tests 07/05/25 04:51 07/05/25 04:51 07/05/25 04:51 WBC 11.5 H RBC 4.40 L Hgb 12.8 L Hct 39.9 L MCV 90.7 MCH 29.1 MCHC 32.1 RDW 13.4 Plt Count 309 MPV 10.8 H Sodium 136 L Potassium 3.4 Chloride 101 Carbon Dioxide 26 Anion Gap 9 BUN 8 L Creatinine 1.14 Estim Creat Clear Calc 117 Estimated GFR > 60 Glucose 114 H Calcium 8.5 Magnesium 1.9 Total Bilirubin 1.0 AST 41 ALT 39 Alkaline Phosphatase 80 Total Protein 7.2 Albumin 3.7 Patient Feedback: Patient satisfied with anesthetic care.
--- NOTE | 2025-07-05 17:35 | P.DS_ITS ---
DS: Admitting Diagnosis Discharge Date 07/05/25 Admitting Diagnosis Right upper abdominal pain DS: Discharge Diagnosis Discharge Diagnosis (1) Acute cholecystitis: Code(s): K81.0 - Acute cholecystitis Status: Acute (2) Gastroesophageal reflux disease without esophagitis: Code(s): K21.9 - Gastro-esophageal reflux disease without esophagitis Status: Acute (3) Elevated blood pressure reading without diagnosis of hypertension: Code(s): R03.0 - Elevated blood-pressure reading, without diagnosis of hypertension Status: Acute (4) Intermittent asthma: Qualifiers: Asthma severity: mild Asthma complication type: with status asthmaticus Qualified Code(s): J45.22 - Mild intermittent asthma with status asthmaticus Code(s): J45.20 - Mild intermittent asthma, uncomplicated Status: Chronic (5) Nicotine dependence: Qualifiers: Nicotine product type: other Substance use status: uncomplicated Qualified Code(s): F17.290 - Nicotine dependence, other tobacco product, uncomplicated Code(s): F17.200 - Nicotine dependence, unspecified, uncomplicated Status: Acute (6) Suspected sleep apnea: Code(s): R29.818 - Other symptoms and signs involving the nervous system Status: Acute Plan Patient presents with physical exam and imaging consistent with acute cholecystitis. Patient did have some leukocytosis and mild tachycardia meeting SIRS criteria but tachycardia resolved after 2 L of IV fluid administration. Patient was started on empiric antibiotic therapy with Zosyn. No evidence of choledocholithiasis or biliary obstruction. General surgery has been consulted. Patient is NPO for he possible surgical intervention. Will continue maintenance IV fluid hydration. Will repeat CBC in a.m.. Patient did have a mildly elevated serum protein suggesting some mild hemoconcentration/dehydration. Will continue maintenance IV fluids. Patient does not have a known history of hypertension but has had elevated blood pressures since arrival to the hospital. Possibly due to acute pain but cannot rule out underlying essential hypertension. Will provide pain medications and will monitor blood pressures. If blood pressures remain elevated we may need to start antihypertensive medications. Patient does have history of intermittent has been but is not having any respiratory symptoms at this time. Will resume home Singulair want able to take p.o. will continue p.r.n. inhalers. Will substitute the patient's oral PPI with IV Protonix while NPO. Patient does have a longstanding history of nicotine abuse. Will offer nicotine patch if needed. A patient does have morbid obesity and has an elevated stop Bang score. The patient himself is suspicious that he has obstructive sleep apnea but has not had a sleep study. He would benefit from outpatient polysomnogram once acute medical conditions at been handled. He would benefit from diet lifestyle modification. Review H&P, patient has just returned from surgery, s/p appendectomy today and sleeping, patient family is present, General surgeon has order dinner, patient is clinically stable, will monitor. DS: Summary Hospital Course Hospital Course: s/p appendectomy on 07/04/25 POD #1, paint is better, seen by his surgeon, advance the diet which is able to tolerate, patient is clinically stable, will discharge home today. Time Spent with Patient Time attestation: Total time spent providing and/or coordinating discharge services: Exam Narrative: Morbidly obese Patient is comfortable, NAD HEENT: eyes are clear and none icteric LUNGS:CTA HEART: RR S1S2 ABD: BS+, Soft and nontender Lower extremities: no edema SKIN: nonjaundiced Neuro: grossly intact. DS: Data Data Completed and Pending Pending studies at discharge: Pending at discharge 07/04/25 11:32 Surgical [PTH] Routine Labs on day of discharge: Labs from last 24 hours 07/05/25 04:51 WBC 11.5 H RBC 4.40 L Hgb 12.8 L Hct 39.9 L MCV 90.7 MCH 29.1 MCHC 32.1 RDW 13.4 Plt Count 309 MPV 10.8 H Sodium 136 L Potassium 3.4 Chloride 101 Carbon Dioxide 26 Anion Gap 9 BUN 8 L Creatinine 1.14 Estim Creat Clear Calc 117 Estimated GFR > 60 Glucose 114 H Calcium 8.5 Magnesium 1.9 Total Bilirubin 1.0 AST 41 ALT 39 Alkaline Phosphatase 80 Total Protein 7.2 Albumin 3.7 Discharge Plan Discharge Attending physician on discharge: Diane Gonzales Consulting providers: Holland Lemus; Sue Blandon; Michael Castle; Jed Marcelino; Jonathan Gibson V. Discharging Clinician: Stacey Hardin Patient Disposition: Home Activity: other - see discharge instructions Diet: heart healthy and low fat Wound Care Instructions: other - see discharge instructions Discharge Instructions: DISCHARGE INSTRUCTION SHEET FOR HERNIA, GALLBLADDER AND APPENDIX SURGERIES DR. LEMUS PATIENT TO TAKE HOME 1. May shower, no soaking in bath x 2weeks. 2. Call office for: * Wound increasingly painful or bleeding * Vomiting * Fever of greater than 101 degrees 3. If no bowel movement for three days, take 1 oz. (30 ml) Milk of Magnesia or MiraLax 17g 1 to 2 times daily. 4. No heavy lifting > 10-15 pounds x 2 weeks for laparoscopic cholecystectomy or appendectomy. 5. No driving for 3 days or while taking narcotic pain medications. 6. Ice to surgical site for 48 hours (30 min on, then 30 min off). 7. Up walking 10-30 minutes three times per day. 8. Resume previous home medications. 9. Follow-up 10-14 days in office for wound check or as previously scheduled. ([phone]) 10. Oral pain medications prescription to be sent to pharmacy. Take Tylenol 500mg every 6 hours and Ibuprofen 600mg every 6 hours for the first 2 days, then as needed. 11. NUTRITION: Start out by drinking fluids and increase your diet as tolerated. If you experience nausea, try dry toast, crackers, and 7-UP. If nausea or vomiting persists, contact your surgeon?s office. 12. Gallbladders-Low Fat Diet for 2 weeks (send care note of low fat diet) 13. Inguinal Hernias-wear scrotal support for 48 hours 14. Abdominal Hernias-if sent home with abdominal binder, wear for the first 2 weeks (may remove to shower or at night to sleep). patient to follow discharge care instruction from his surgeon and follow up as scheduled, patient to follow up with his primary care provider as soon as possible, patient is instructed if any symptoms redevelop to go to nearest ER. Revised January 2019 Patient Instructions: Antibiotic Form, How to Stop Smoking (GEN), Low Fat Diet (DC) Patient Language: British Stand Alone Forms: Work/School Release IP Follow-up/Referrals: Asaf Ramirez MD [Primary Care Provider, Family Practice] Holland Lemus DO [Physician, General Surgery] - 2 Weeks Discharge Medications: New hydrocodone-acetaminophen 5-325 mg tablet 1 tablet PO Q4H PRN (Reason: pain) Qty: 10 0RF nicotine [Nicoderm CQ] 21 mg/24 hr Patch 24 Hour 1 patch transdermal DAILY PRN (Reason: Nicotine withdrawal) Qty: 28 0RF pantoprazole [Protonix] 40 mg tablet,delayed release (DR/EC) 40 mg PO QAM Qty: 30 0RF amoxicillin-pot clavulanate [Augmentin] 500-125 mg tablet 1 tablet PO Q8H Qty: 15 0RF Continued fluticasone propionate 50 mcg/actuation spray,suspension 1 spray intranasal DAILY Rx Instructions: administer into each nostril alum-mag hydroxide-simeth [Maalox Advanced] 200-200-20 mg/5 mL suspension 10 ml PO QID PRN (Reason: dyspepsia) Qty: 200 0RF Rx Instructions: administer between meals and at bedtime ipratropium-albuterol 0.5 mg-3 mg(2.5 mg base)/3 mL solution for nebulization 3 ml INHALATION QID metformin 500 mg tablet extended release 24 hr 500 mg PO DAILY Asmanex Twisthaler 220 mcg/ actuation (60) aerosol powdr breath activated 1 inh INHALATION Q12H albuterol sulfate [Ventolin HFA] 90 mcg/actuation HFA aerosol inhaler 1 puff INHALATION Q4H PRN (Reason: shortness of breath or wheezing) Qty: 8.5 1RF omeprazole 40 mg capsule,delayed release(DR/EC) 40 mg PO DAILY Qty: 30 2RF montelukast [Singulair] 10 mg tablet 10 mg PO DAILY Qty: 90 0RF Date of admission: 07/04/25 02:23 Primary Care Provider: Asaf Ramirez Admitting Provider: Diane Gonzales Attending physician on admission: Stacey Hardin Condition: Stable
== END 2025-07-05 20:00 | disposition home or self-care (01) ==
LOC: ANHED 07-04 01:31 → ANH3MEDSUR 07-04 05:52
PROVIDERS: Surgery; Admitting Provider Internal Medicine; Emergency Provider Physician Assistant; PCP Family Medicine; Visit Provider Family Medicine
PROC: 0FT44ZZ Resection of Gallbladder, Percutaneous Endoscopic Approach (ICD-10-PCS; CPT 47562; principal; 2025-07-04 10:00)
DX: K80.00 Calculus of gallbladder with acute cholecystitis without obstruction (principal); K82.A1 Gangrene of gallbladder in cholecystitis; R03.0 Elevated blood-pressure reading, without diagnosis of hypertension; J45.22 Mild intermittent asthma with status asthmaticus; F17.290 Nicotine dependence, other tobacco product, uncomplicated; K21.9 Gastro-esophageal reflux disease without esophagitis; R29.818 Other symptoms and signs involving the nervous system; F12.90 Cannabis use, unspecified, uncomplicated; E66.01 Morbid (severe) obesity due to excess calories; Z68.41 Body mass index [BMI] 40.0-44.9, adult
CPT/HCPCS: 47562; 36415; 74176; 80053; 81003; 83690; 83735; 85025; 85027; 88304; 94640; 96361; 96365; 96375; 96376; 99285; A9270; G0378; J0330; J0616; J1171; J1650; J2250; J2270; J2405; J2470; J2543; J2704; J3010; J7030; J7120